=== PATIENT | female | born 1960 | race African-American/Black ===

== ENCOUNTER 2017-04-05 14:29 | Emergency (ER) | payer OTHER ==
[2017-04-05] MEDS ORDERED: DIPHENHYDRAMINE HCL 50 MG/ML VIAL IV ONE (14:49)
[2017-04-05] MEDS ORDERED: TERBUTALINE SULFATE INJ/PF 1 MG/1 ML SDV SUBCUT ONE (14:49)
[2017-04-05] MEDS ORDERED: FAMOTIDINE INJ/PF 20 MG/2 ML SDV IV ONE ×2 (14:49→14:51)
[2017-04-05] MEDS ORDERED: METHYLPREDNISOLONE INJ 125 MG/2 ML SDV ONE (14:51)
[2017-04-05] MEDS ORDERED: ALBUTEROL SULFATE 0.083% NEB 2.5 MG/3 ML AMPUL NEB ONE (14:51)
[2017-04-05] MEDS ORDERED: DIPHENHYDRAMINE HCL 50 MG/ML VIAL ONE (14:51)
--- NOTE | 2017-04-05 16:01 | RADIOLOGY REPORT (SQ) ---
EXAM DESCRIPTION: CHEST PA/LAT COMPLETED DATE/TIME: 04/05/2017 3:50 pm REASON FOR STUDY: cough COMPARISON: 09/10/2013 EXAM PARAMETERS: NUMBER OF VIEWS: two views TECHNIQUE: Digital Frontal and Lateral radiographic views of the chest acquired. RADIATION DOSE: NA LIMITATIONS: none FINDINGS: LUNGS AND PLEURA: No opacities, masses or pneumothorax. No pleural effusion. MEDIASTINUM AND HILAR STRUCTURES: No masses or contour abnormalities. HEART AND VASCULAR STRUCTURES: Heart size upper limits of normal. No evidence for failure. BONES: No acute findings. HARDWARE: None in the chest. OTHER: No other significant finding. IMPRESSION: NO ACUTE RADIOGRAPHIC FINDING IN THE CHEST. TECHNICAL DOCUMENTATION: JOB ID: [id number] [employer]- All Rights Reserved
--- NOTE | 2017-04-05 16:29 | ER Document Report ---
ED General - General Chief Complaint: Congestion Stated Complaint: CONGESTION Time Seen by Provider: 04/05/17 14:42 Information source: Patient TRAVEL OUTSIDE OF THE [place] IN LAST 30 DAYS: No - HPI Onset: Just prior to arrival Onset/Duration: Sudden Associated symptoms: None Similar symptoms previously: No - Related Data Allergies/Adverse Reactions: aspirin [Aspirin] Allergy (Verified 06/21/15 15:59) Past Medical History - General Information source: Patient - Social History Smoking Status: Never Smoker Chew tobacco use (# tins/day): No Frequency of alcohol use: None Drug Abuse: None Family History: Reviewed & Not Pertinent Patient has suicidal ideation: No Patient has homicidal ideation: No - Past Medical History Cardiac Medical History: Reports: Hx Hypertension Pulmonary Medical History: Reports: Hx Asthma Endocrine Medical History: Reports: Hx Diabetes Mellitus Type 2 Renal/ Medical History: Denies: Hx Peritoneal Dialysis GI Medical History: Reports: Hx Gastroesophageal Reflux Disease Past Surgical History: Reports: Hx Section - x 4, Hx Gynecologic Surgery - uterine fibroids, Hx Hysterectomy - Immunizations Hx Diphtheria, Pertussis, Tetanus Vaccination: Yes Review of Systems - Review of Systems Constitutional: No symptoms reported EENT: No symptoms reported, Throat pain, Throat swelling Cardiovascular: No symptoms reported Respiratory: No symptoms reported, Cough Gastrointestinal: No symptoms reported Genitourinary: No symptoms reported Female Genitourinary: No symptoms reported Musculoskeletal: No symptoms reported Skin: No symptoms reported Hematologic/Lymphatic: No symptoms reported Neurological/Psychological: No symptoms reported Physical Exam - Vital signs Vitals: Temp Pulse Resp BP Pulse Ox 98.4 F 86 3 L 143/75 H 95 04/05/17 14:34 04/05/17 14:34 04/05/17 14:34 04/05/17 14:34 04/05/17 14:34 Interpretation: Normal - General General appearance: Appears well, Alert - HEENT Head: Normocephalic, Atraumatic Eyes: Normal Pupils: PERRL - Respiratory Respiratory status: No respiratory distress Chest status: Nontender Breath sounds: Normal Chest palpation: Normal - Cardiovascular Rhythm: Regular Heart sounds: Normal auscultation Murmur: No - Abdominal Inspection: Normal Distension: No distension Bowel sounds: Normal Tenderness: Nontender Organomegaly: No organomegaly - Back Back: Normal, Nontender - Extremities General upper extremity: Normal inspection, Nontender, Normal color, Normal ROM , Normal temperature General lower extremity: Normal inspection, Nontender, Normal color, Normal ROM , Normal temperature, Normal weight bearing. No: Jean Marie's sign - Neurological Neuro grossly intact: Yes Cognition: Normal Orientation: AAOx4 [place] Coma Scale Eye Opening: Spontaneous [place] Coma Scale Verbal: Oriented [place] Coma Scale Motor: Obeys Commands [place] Coma Scale Total: 15 Speech: Normal Motor strength normal: LUE, RUE, LLE, RLE Sensory: Normal - Psychological Associated symptoms: Normal affect, Normal mood - Skin Skin Temperature: Warm Skin Moisture: Dry Skin Color: Normal Course - Re-evaluation Re-evalutation: 04/05/17 16:25 This is a 56-year-old female presents to the emergency room today stating that she had had a cough over the course of the last 4 days. When she arrived to the emergency room she did not tell us that she felt as though her throat was swelling. It was difficult to ascertain if that were true symptomology or a somatoform type stridor.. Nonetheless patient was provided with Solu-Medrol Pepcid Benadryl she was observed for a period of 2 hours she was feeling well and speaking in full sentences in fact she was doing out approximately 2 minutes after the administration of the medication. Monitored for again about approximately 2 hours with no difficulty with that an x-ray was obtained of her chest to her original complaint her pharynx was not red nor erythemic no exudate no edema no oral floor induration. - Vital Signs Vital signs: Temp Pulse Resp BP Pulse Ox 98.4 F 86 3 L 143/75 H 95 04/05/17 14:34 04/05/17 14:34 04/05/17 14:34 04/05/17 14:34 04/05/17 14:34 Discharge - Discharge Clinical Impression: Cough Additional Instructions: Bronchitis You have acute bronchitis. This disease is an infection or inflammation of the air passageways in your lungs. Symptoms usually include cough, low grade fever, shortness of breath, and wheezing. The cough usually persists for a couple of weeks. Most cases of bronchitis get better without antibiotics. We prescribe antibiotics when we believe bacteria are damaging your airways, or if there's high risk the bronchitis will worsen into pneumonia. Increase your fluid intake. A cool mist humidifier may make your lungs more comfortable. An expectorant (cough medicine that loosens phlegm) can help. If you smoke, STOP!!! Recovery from bronchitis can be somewhat slow, but you should see improvement within a day or two. Repeated episodes of bronchitis may result in lung damage -- for example, chronic bronchitis, recurrent pneumonias, or emphysema. Call the doctor if you develop increasing fever, shortness of breath, chest pain, bloody sputum, or otherwise worsen. If you have not improved at all after several days, contact the physician. Prescriptions: Amox Tr/Potassium Clavulanate [Augmentin 875-125 Tablet] 1 tab PO BID 10 Days Diphenhydramine HCl [Benadryl 25 mg Capsule] 25 mg PO Q6 PRN #25 capsule PRN Reason: Famotidine [Pepcid 20 mg Tablet] 20 mg PO DAILY #12 tablet Prednisone [Deltasone 20 mg Tablet] 3 tab PO DAILY 5 Days
[2017-04-05 16:51] VITALS: BP 141/75
== END 2017-04-05 17:00 | disposition home or self-care (01) ==
LOC: ER 14:29
DX: R05 Cough (principal); R22.1 Localized swelling, mass and lump, neck; E11.9 Type 2 diabetes mellitus without complications; I10 Essential (primary) hypertension; K21.9 Gastro-esophageal reflux disease without esophagitis; J45.909 Unspecified asthma, uncomplicated; Z88.6 Allergy status to analgesic agent
CPT/HCPCS: 94640; 99283; 96374; 96375; 71020; J1200; J2930; S0028

== ENCOUNTER 2017-11-06 19:39 | Emergency (ER) | payer OTHER ==
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
[2017-11-06] MEDS ORDERED: LIDOCAINE 5% (700 MG) TRANSDERMAL ADH..PATCH TP ONE (20:36)
[2017-11-06 21:26] VITALS: BP 138/71
== END 2017-11-06 20:48 | disposition home or self-care (01) ==
LOC: ER 19:39
DX: M54.6 Pain in thoracic spine (principal); M62.838 Other muscle spasm; R51 Headache; V87.7XXA Person injured in collision between other specified motor vehicles (traffic), initial encounter
CPT/HCPCS: 99283

== ENCOUNTER 2018-12-01 20:18 | Inpatient (IN) | payer OTHER ==
--- NOTE | 2018-12-01 21:32 | RADIOLOGY REPORT (SQ) ---
EXAM DESCRIPTION: CT HEAD WITHOUT IV CONTRAST COMPLETED DATE/TME: 12/01/2018 00:00 CLINICAL HISTORY: 58 years, Female, AMS COMPARISON: None. TECHNIQUE: 191 Images stored on PACS. All CT scanners at this facility use dose modulation, iterative reconstruction, and/or weight based dosing when appropriate to reduce radiation dose to as low as reasonably achievable (ALARA). [facility]: Dose Right [facility]: CareDose [facility]: Dose Right [facility]: Teradose 4D [facility]: [employer] LIMITATIONS: None. FINDINGS: The globes are intact. The paranasal sinuses and mastoid air cells are unremarkable. No displaced or depressed skull fracture. No intra or extra-axial hemorrhage. CT is limited for evaluation of acute infarct. No CT evidence for large or territorial acute infarct. Vague area of diminished attenuation in the left temporal region may reflect age-indeterminate infarct. There is also an area of diminished attenuation in the left parieto-occipital region consistent with age indeterminate infarct. Age-indeterminate lacunar infarct measuring 6.3 mm of the right basal ganglia. Hypodensities in the periventricular and subcortical white matter, consistent with sequelae of small vessel ischemic change. No discrete mass or midline shift. IMPRESSION: Age indeterminate lacunar infarct of the right basal ganglia. Vague areas of diminished attenuation in the left temporal and left parietal occipital region, consistent with areas of age-indeterminate infarct. No CT evidence for large or territorial acute infarct. No mass or midline shift. Minor small vessel ischemic change TECHNICAL DOCUMENTATION: Quality ID # [id number]: Final reports with documentation of one or more dose reduction techniques (e.g., Automated exposure control, adjustment of the mA and/or kV according to patient size, use of iterative reconstruction technique) copyright 2011 [employer]- All Rights Reserved
[2018-12-01 21:35] LABS: ABSOLUTE EOSINOPHILS # (AUTO) 0.1 10^3/uL (0.0-0.6); ABSOLUTE LYMPHOCYTES (AUTO) 1.9 10^3/uL (0.5-4.7); ABSOLUTE MONOCYTES (AUTO) 0.5 10^3/uL (0.1-1.4); ABSOLUTE NEUT (AUTO) 4.8 10^3/uL (1.7-8.2); BASOPHILS % (AUTO) 0.3 % (0-2); EOSINOPHILS % (AUTO) 1.4 % (0-6); HEMOGLOBIN 13.6 g/dL (12.0-15.5); LYMPHOCYTES % (AUTO) 26.2 % (13-45); MEAN CORPUSCULAR HEMOGLOBIN 27.3 pg (27.0-33.4); MEAN CORPUSCULAR HGB CONC 33.1 g/dL (32.0-36.0); MEAN CORPUSCULAR VOLUME 83 fl (80-97); PLATELET COUNT 297 10^3/uL (150-450); RED BLOOD COUNT 4.96 10^6/uL (3.72-5.28); RED CELL DISTRIBUTION WIDTH 13.1 % (11.5-14.0); SEGMENTED NEUTROPHILS % (AUTO) 65.1 % (42-78); TOTAL CELLS COUNTED % (AUTO) 100 %; WHITE BLOOD COUNT 7.3 10^3/uL (4.0-10.5)
--- NOTE | 2018-12-01 21:37 | ER Document Report ---
ED General - General Chief Complaint: Altered Mental Status Stated Complaint: HIGH BLOOD SUGAR/CONFUSION Time Seen by Provider: 12/01/18 21:16 Mode of Arrival: Ambulatory Information source: Patient, [facility] Records Notes: 58-year-old female with hypertension, asthma, type 2 diabetes, anemia presents via private vehicle with her with concern of confusion, elevated blood pressure, left-sided headache and unsteady gait that started 4 days prior to arrival. reports that the patient has seemed more confused over the last few days. She seems to have been off balance when walking. Today patient was sent home from work because she was very forgetful. Patient is unable to tell me what she does for work. She is alert, awake but cannot answer any questions regarding her health, date, why she is here. reports that this is a complete change from the patient's baseline. She does not smoke, drink or participate in illicit drugs per the . 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 They deny any prior similar symptoms. does report that the patient was treated with antibiotics for an upper respiratory infection 2 weeks ago. Patient currently complaining of a dull left-sided headache. TRAVEL OUTSIDE OF THE [place] IN LAST 30 DAYS: No - HPI Onset: Other Onset/Duration: Gradual, Persistent Quality of pain: Achy, Throbbing Severity: Mild Associated symptoms: Headache, Other - Confusion. denies: Chest pain, Nausea, Vomiting, Shortness of breath Exacerbated by: Denies Relieved by: Denies Similar symptoms previously: No Recently seen / treated by doctor: No - Related Data Allergies/Adverse Reactions: aspirin [Aspirin] Allergy (Verified 06/21/15 15:59) Past Medical History - General Information source: Patient, Relative, [facility] Records - Social History Smoking Status: Never Smoker Frequency of alcohol use: None Drug Abuse: None Lives with: Spouse/Significant other Family History: Reviewed & Not Pertinent Patient has suicidal ideation: No Patient has homicidal ideation: No - Past Medical History Cardiac Medical History: Reports: Hx Hypertension Pulmonary Medical History: Reports: Hx Asthma Endocrine Medical History: Reports: Hx Diabetes Mellitus Type 2 Renal/ Medical History: Denies: Hx Peritoneal Dialysis GI Medical History: Reports: Hx Gastroesophageal Reflux Disease Past Surgical History: Reports: Hx Section - x 4, Hx Gynecologic Surgery - uterine fibroids, Hx Hysterectomy - Immunizations Hx Diphtheria, Pertussis, Tetanus Vaccination: Yes Review of Systems - Review of Systems Notes: REVIEW OF SYSTEMS: CONSTITUTIONAL : Denies fever, chills, or sweats. Denies recent illness. Denies weight loss, recent hospitalizations. EENT: Denies visual changes, eye pain. Denies sore throat, oral lesions, difficulty swallowing. CARDIOVASCULAR: Denies chest pain. Denies palpitations. Denies lower extremity edema. RESPIRATORY: Denies cough. Denies shortness of breath, wheezing. GASTROINTESTINAL: Denies abdominal pain or distention. Denies nausea, vomiting, or diarrhea. Denies blood in vomitus, stools, or per rectum. Denies black, tarry stools. Denies constipation. GENITOURINARY: Denies difficulty urinating, painful urination, frequency, blood in urine, or vaginal discharge. MUSCULOSKELETAL: Denies back or neck pain or stiffness. Denies joint pain or swelling. SKIN: Denies rash, lesions or sores. HEMATOLOGIC : Denies easy bruising or bleeding. LYMPHATIC: Denies swollen glands. NEUROLOGICAL: + Confusion, denies loss of consciousness. Denies dizziness or lightheadedness. + Headache denies weakness or paralysis. + difficulty with ambulation, slurred speech. Denies sensory loss, numbness, or tingling. Denies seizures. PSYCHIATRIC: Denies anxiety or stress. Denies depression, suicidal ideation, or homicidal ideation. Denies visual or auditory hallucinations. Physical Exam - Vital signs Vitals: Temp Pulse Resp BP Pulse Ox 100.0 F 67 20 164/68 H 95 12/01/18 20:29 12/01/18 20:29 12/01/18 20:29 12/01/18 20:29 12/01/18 20:29 Interpretation: Hypertensive - Notes Notes: PHYSICAL EXAMINATION: GENERAL: Well-appearing, well-nourished and in no acute distress. HEAD: Atraumatic, normocephalic. EYES: Pupils equal round and reactive to light, extraocular movements intact, conjunctiva are normal. ENT: Nares patent, oropharynx clear without exudates. Moist mucous membranes. NECK: Normal range of motion, supple without lymphadenopathy LUNGS: Breath sounds clear to auscultation bilaterally and equal. No wheezes rales or rhonchi. HEART: Regular rate and rhythm without murmurs ABDOMEN: Soft, nontender, nondistended abdomen. No guarding, no rebound. No masses appreciated. Female : deferred Musculoskeletal: Normal range of motion, no pitting or edema. No cyanosis. NEUROLOGICAL: Cranial nerves grossly intact. Normal speech, Normal sensory, motor exams. Moderate aphasia. NIH-6 for bilateral lower extremity drift, a aphasia. PSYCH: Confused SKIN: Warm, Dry, normal turgor, no rashes or lesions noted. Course - Re-evaluation Re-evalutation: 12/01/18 22:15 CT of the head was obtained. Patient is allergic to aspirin. - Vital Signs Vital signs: Temp Pulse Resp BP Pulse Ox 98.7 F 68 20 141/69 H 94 12/02/18 02:05 12/02/18 02:05 12/02/18 02:05 12/02/18 02:05 12/02/18 02:05 - Laboratory Result Diagrams: 12/01/18 21:18 12/01/18 21:18 Laboratory results interpreted by me: 12/01/18 12/01/18 12/01/18 21:18 21:21 22:16 Sodium 134.9 L Potassium 5.3 H Chloride 95 L Carbon Dioxide 32 H BUN 28 H Creatinine 1.32 H Est GFR ( Amer) 50 L Est GFR (Non-Af Amer) 41 L Glucose 253 H POC Glucose 262 H Ammonia Ur Leukocyte Esterase TRACE H Urine Ascorbic Acid 40 H 12/01/18 22:38 Sodium Potassium Chloride Carbon Dioxide BUN Creatinine Est GFR ( Amer) Est GFR (Non-Af Amer) Glucose POC Glucose Ammonia < 8.7 L Ur Leukocyte Esterase Urine Ascorbic Acid - Diagnostic Test Radiology reviewed: Image reviewed, Reports reviewed - EKG Interpretation by Me EKG shows normal: Sinus rhythm Rate: Normal Rhythm: NSR Voltage: Consistant with LVH When compared to previous EKG there are: Previous EKG unavailable Critical Care Note - Critical Care Note Total time excluding time spent on procedures (mins): 40 - Minutes of critical care time spent in direct contact evaluating and reevaluating the patient, treating symptoms, reviewing labs and studies and speaking with family and consultants excluding any procedures Discharge - Discharge Clinical Impression: Expressive aphasia, Lacunar infarct, acute, Diabetes mellitus type 2 in obese CVA (cerebral vascular accident) Qualifiers: CVA mechanism: occlusion Precerebral and cerebral artery: unspecified precerebral artery Qualified Code(s): I63.20 - Cerebral infarction due to unspecified occlusion or stenosis of unspecified precerebral arteries HTN (hypertension) Qualifiers: Hypertension type: essential hypertension Qualified Code(s): I10 - Essential (primary) hypertension Condition: Fair Disposition: ADMITTED INPATIENT Admitting Provider: Hospitalist Unit Admitted: [facility]
[2018-12-01 21:42] LABS: INTERNATIONAL RATION (INR) 0.93
[2018-12-01 21:53] LABS: ALANINE AMINOTRANSFERASE 22 U/L (9-52); ALBUMIN 4.5 g/dL (3.5-5.0); ALKALINE PHOSPHATASE 104 U/L (38-126); ANION GAP 8 (5-19); ASPARTATE AMINO TRANSFERASE 20 U/L (14-36); BILIRUBIN,DIRECT 0.3 mg/dL (0.0-0.4); BILIRUBIN,TOTAL 0.4 mg/dL (0.2-1.3); BLOOD UREA NITROGEN 28 mg/dL (7-20); CALCIUM 10.1 mg/dL (8.4-10.2); CARBON DIOXIDE 32 mmol/L (22-30); CHLORIDE 95 mmol/L (98-107); GLUCOSE 253 mg/dL (75-110); POTASSIUM 5.3 mmol/L (3.6-5.0); SODIUM 134.9 mmol/L (137-145); TOTAL PROTEIN 7.7 g/dL (6.3-8.2)
--- NOTE | 2018-12-01 22:12 | RADIOLOGY REPORT (SQ) ---
EXAM DESCRIPTION: CT NECK head and ANGIOGRAPHY WITHOUT THEN WITH IV CONTRAST COMPLETED DATE/TME: 12/01/2018 21:30 CLINICAL HISTORY: 58 years, Female, ams COMPARISON: None. TECHNIQUE: 361 Images stored on PACS. All CT scanners at this facility use dose modulation, iterative reconstruction, and/or weight based dosing when appropriate to reduce radiation dose to as low as reasonably achievable (ALARA). Axial CTA images were obtained with coronal and sagittal MIPS reconstructions. [facility]: Dose Right [facility]: CareDose [facility]: Dose Right [facility]: Teradose 4D [facility]: [employer] LIMITATIONS: None. FINDINGS: CTA neck: Classic takeoff of the great vessels. The origins of the great vessels are widely patent. Visualized lung apices are unremarkable. The cervical portions of the vertebral arteries are patent and appear codominant. The bilateral common carotid arteries are widely patent. Incidental note is made of a heterogeneous appearance to the thyroid with nodularity in the left lobe. This could be further assessed with ultrasound. The cervical portions of the bilateral common carotid arteries are widely patent. No CTA evidence for stenosis. CTA head: The vertebral basilar system is unremarkable. Negative for basilar tip aneurysm. The petrous and remaining intracranial portions of the internal carotid arteries are widely patent. The pokagon of [place] is intact and unremarkable. No CTA evidence for aneurysm or arteriovenous malformation. No CTA evidence for measurable stenosis, vascular encasement, or displacement. IMPRESSION: No CTA evidence for measurable stenosis in the head or neck. Heterogeneity of the thyroid, consider further assessment with nonemergent ultrasound. TECHNICAL DOCUMENTATION: Quality ID # 436: Final reports with documentation of one or more dose reduction techniques (e.g., Automated exposure control, adjustment of the mA and/or kV according to patient size, use of iterative reconstruction technique) copyright 2010 [employer]- All Rights Reserved
--- NOTE | 2018-12-01 22:38 | RADIOLOGY REPORT (SQ) ---
EXAM DESCRIPTION: XR CHEST 1 VIEW COMPLETED DATE/TME: 12/01/2018 20:56 CLINICAL HISTORY: 58 years, Female, FEVER COMPARISON: 04/05/2017 chest NUMBER OF VIEWS: 1 TECHNIQUE: Portable chest LIMITATIONS: None. FINDINGS: Heart size is normal. Mild atheromatous change thoracic aorta. Osteopenia. Lungs are clear. No pneumothorax IMPRESSION: No acute cardiopulmonary process copyright 2010 [employer]- All Rights Reserved
[2018-12-01 22:39] LABS: APPEARANCE,URINE CLEAR; BILIRUBIN,URINE NEGATIVE (NEGATIVE); COLOR,URINE YELLOW; GLUCOSE, URINE NEGATIVE (NEGATIVE); KETONES,URINE NEGATIVE (NEGATIVE); LEUKOCYTE ESTERASE,URINE TRACE (NEGATIVE); NITRITE,URINE NEGATIVE (NEGATIVE); PROTEIN,URINE NEGATIVE (NEGATIVE); URINE SPECIFIC GRAVITY 1.026; UROBILINOGEN,URINE NEGATIVE mg/dL (<2.0)
[2018-12-01 22:56] LABS: VENOUS BLOOD BASE EXCESS 4.7 mmol/L; VENOUS BLOOD HCO3 31.5 mmol/L (20-32); VENOUS BLOOD PCO2 56.1 mmHg (35-63); VENOUS BLOOD PH 7.37 (7.30-7.42)
[2018-12-01] MEDS ORDERED: TRAMADOL HCL 50 MG TABLET PO PRN (23:27)
[2018-12-01] MEDS ORDERED: MAGNESIUM HYDROXIDE SUSP 30 ML UDCUP PO PRN (23:27)
[2018-12-01] MEDS ORDERED: DOCUSATE SODIUM 100 MG CAPSULE PO PRN (23:27)
[2018-12-01] MEDS ORDERED: ACETAMINOPHEN 650 MG SUPP.RECT PR PRN (23:27)
[2018-12-01] MEDS ORDERED: ACETAMINOPHEN 325 MG TABLET PO PRN (23:27)
[2018-12-01] MEDS ORDERED: ONDANSETRON HCL INJ/PF 4 MG/2 ML SDV IV PRN (23:27)
[2018-12-01] MEDS ORDERED: ONDANSETRON 4 MG TAB.RAPDIS PO PRN (23:27)
[2018-12-01] MEDS ORDERED: TEMAZEPAM 15 MG CAPSULE PO PRN (23:27)
[2018-12-02 00:54] LABS: FREE T3 2.84 pg/mL (2.77-5.27); FREE T4 (FREE THYROXINE) 1.2 ng/dL (0.78-2.19)
[2018-12-02 06:14] LABS: HEMATOCRIT 37.5 % (36.0-47.0); HEMOGLOBIN 12.6 g/dL (12.0-15.5); MEAN CORPUSCULAR HEMOGLOBIN 27.4 pg (27.0-33.4); MEAN CORPUSCULAR HGB CONC 33.7 g/dL (32.0-36.0); MEAN CORPUSCULAR VOLUME 82 fl (80-97); PLATELET COUNT 255 10^3/uL (150-450); RED CELL DISTRIBUTION WIDTH 13.1 % (11.5-14.0); WHITE BLOOD COUNT 6.5 10^3/uL (4.0-10.5)
[2018-12-02 06:28] LABS: ANION GAP 7 (5-19); BLOOD UREA NITROGEN 25 mg/dL (7-20); CALCIUM 9.7 mg/dL (8.4-10.2); CARBON DIOXIDE 30 mmol/L (22-30); CHLORIDE 98 mmol/L (98-107); CHOLESTEROL 245.65 mg/dL (0-200); GLUCOSE 284 mg/dL (75-110); POTASSIUM 5.3 mmol/L (3.6-5.0); SODIUM 135.4 mmol/L (137-145); TRIGLYCERIDES 191 mg/dL (<150)
[2018-12-02 06:38] LABS: DIRECT LDL 149 mg/dL (<100)
[2018-12-02 06:48] LABS: VLDL CHOLESTEROL 38.2 mg/dL (10-31)
--- NOTE | 2018-12-02 06:48 | PDOC H&P ---
History of Present Illness Admission Date/PCP: 12/01/18 22:40 Patient complains of: Acute change in mental status "confusion" History of Present Illness: JOSIE BIRD is a 58 year old female who presented to the emergency room with a 5-day history of headache with mental confusion. She has a significant expressive aphasia and her helps to fill in the communication gaps. 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 She continued to have a moderately intense global headache until the morning of admission. She was also noted to have mental confusion over the same timeframe, by her who felt that she was having a hard time remembering simple every day things that would never be confusing to her under normal circumstances. 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 She had difficulty remembering the names of objects and could not name things such as her high blood pressure medicine and also had some confusion about the number of days that she had a headache and what day her symptoms changed. She denies prior similar episodes and has not identified any aggravating or ameliorating factors for her headache or confusion. In the emergency room she was found to have changes consistent with an acute cerebrovascular accident on her CT scan of the head. With these findings patient was admitted for acute stroke care. Past Medical History Cardiac Medical History: Reports: Hypertension Pulmonary Medical History: Reports: Asthma Denies: Chronic Obstructive Pulmonary Disease (COPD), Respiratory Failure EENT Medical History: Reports: None Neurological Medical History: Denies: Hemorrhagic CVA, Ischemic CVA, Multiple Sclerosis, Seizures Endocrine Medical History: Reports: Diabetes Mellitus Type 2, Obesity Denies: Hyperthyroidism, Hypothyroidism Renal/ Medical History: Denies: Chronic Kidney Disease, Nephrolithiasis Malignancy Medical History: Reports: None GI Medical History: Reports: Gastroesophageal Reflux Disease Denies: Cirrhosis, Hepatitis Musculoskeltal Medical History: Denies: Arthritis, Gout Skin Medical History: Denies: Eczema, Psoriasis Psychiatric Medical History: Denies: Alcohol Dependency, Substance Abuse, Tobacco Dependency Traumatic Medical History: Reports: None Hematology: Reports: Anemia Denies: Bleeding Tendencies Infectious Medical History: Reports: None Past Surgical History Past Surgical History: Reports: Section - x 4, Hysterectomy Social History Information Source: Patient Lives with: Spouse/Significant other Smoking Status: Never Smoker Frequency of Alcohol Use: None Hx Recreational Drug Use: No Drugs: None Hx Prescription Drug Abuse: No - Advance Directive Resuscitation Status: Full Code Surrogate healthcare decision maker:: Spouse Family History Family History: Hypertension Parental Family History Reviewed: Yes Children Family History Reviewed: No Sibling(s) Family History Reviewed.: Yes Medication/Allergy Home Medications: Amlodipine/Valsartan/Hcthiazid [Exforge Hct 10-320-25 mg Tablet] 1 tab PO DAILY 10/31/14 Glipizide [Glipizide ER] 5 mg PO DAILY 10/31/14 Glipizide [Glipizide Xl] 10 mg PO DAILY #30 tab.er.24 10/31/14 Metformin HCl [Glucophage XR 750 mg Tablet] 750 mg PO DAILY 10/31/14 Oxycodone HCl/Acetaminophen [Percocet 5-325 mg Tablet] 0.5 - 1 tab PO Q6 #10 tablet 06/21/15 Albuterol Sulfate [Proair HFA Inhalation Aerosol 8.5 gm MDI] 2 puff IH Q4H PRN #1 mdi 04/05/17 Amox Tr/Potassium Clavulanate [Augmentin 875-125 Tablet] 1 tab PO BID 10 Days tablet 04/05/17 Diphenhydramine HCl [Benadryl 25 mg Capsule] 25 mg PO Q6 PRN #25 capsule 04/05/17 Famotidine [Pepcid 20 mg Tablet] 20 mg PO DAILY #12 tablet 04/05/17 Prednisone [Deltasone 20 mg Tablet] 3 tab PO DAILY 5 Days tablet 04/05/17 Allergies/Adverse Reactions: aspirin [Aspirin] Allergy (Verified 06/21/15 15:59) Review of Systems Review of Systems: Provided by the patient with some help from her spouse. Constitutional: PRESENT: as per HPI, headache(s). ABSENT: chills, fever(s) Eyes: ABSENT: visual disturbances, other - Ocular pain Ears: ABSENT: hearing changes, other - Ear pain Nose, Mouth, and Throat: ABSENT: mouth pain, sore throat Cardiovascular: ABSENT: chest pain, dyspnea on exertion, palpitations Respiratory: ABSENT: cough, dyspnea Gastrointestinal: ABSENT: abdominal pain, constipation, diarrhea, nausea, vomiting Genitourinary: ABSENT: dysuria, hematuria - [id number] Integumentary: ABSENT: pruritus, rash Neurological: PRESENT: abnormal speech - Difficulty saying the words she wishes to say, confusion - Cannot think of things she can normally remember, memory loss - Hard to remember the names of common objects. ABSENT: convulsions Psychiatric: ABSENT: anxiety, depression Endocrine: ABSENT: cold intolerance, heat intolerance Hematologic/Lymphatic: ABSENT: easy bleeding, easy bruising Physical Exam Vital Signs: Temp Pulse Resp BP Pulse Ox 100.0 F 69 20 136/73 H 95 12/01/18 20:29 12/01/18 21:41 12/01/18 21:41 12/01/18 21:41 12/01/18 21:41 General appearance: PRESENT: no acute distress, cooperative, obese Head exam: PRESENT: atraumatic, normocephalic Eye exam: PRESENT: conjunctiva pink, EOMI. ABSENT: scleral icterus Ear exam: PRESENT: normal external ear exam. ABSENT: bleeding, drainage Mouth exam: PRESENT: dry mucosa, neck supple Neck exam: PRESENT: full ROM. ABSENT: JVD, thyromegaly, tracheal deviation Respiratory exam: PRESENT: clear to auscultation amarjit, symmetrical, unlabored Cardiovascular exam: PRESENT: RRR. ABSENT: clicks, gallop, rubs Pulses: PRESENT: normal radial pulses, normal dorsalis pedis pul GI/Abdominal exam: PRESENT: normal bowel sounds, soft Rectal exam: PRESENT: deferred Extremities exam: ABSENT: joint swelling, pedal edema Musculoskeletal exam: ABSENT: full ROM, normal inspection Neurological exam: PRESENT: alert, oriented to person, oriented to place, oriented to time, oriented to situation, CN II-XII grossly intact, aphasic - Mild to moderate expressive aphasia, no evidence of receptive aphasia.. ABSENT: motor sensory deficit Psychiatric exam: PRESENT: appropriate affect, normal mood Skin exam: PRESENT: dry, intact, warm. ABSENT: jaundice, rash, urticaria Results Laboratory Results: 12/01/18 21:18 12/01/18 21:18 12/01/18 12/01/18 12/01/18 21:18 21:18 22:16 WBC 7.3 RBC 4.96 Hgb 13.6 Hct 41.0 MCV 83 MCH 27.3 MCHC 33.1 RDW 13.1 Plt Count 297 Seg Neutrophils % 65.1 Lymphocytes % 26.2 Monocytes % 7.0 Eosinophils % 1.4 Basophils % 0.3 Absolute Neutrophils 4.8 Absolute Lymphocytes 1.9 Absolute Monocytes 0.5 Absolute Eosinophils 0.1 Absolute Basophils 0.0 Sodium 134.9 L Potassium 5.3 H Chloride 95 L Carbon Dioxide 32 H Anion Gap 8 BUN 28 H Creatinine 1.32 H Est GFR ( Amer) 50 L Est GFR (Non-Af Amer) 41 L Glucose 253 H Calcium 10.1 Total Bilirubin 0.4 AST 20 ALT 22 Alkaline Phosphatase 104 Total Protein 7.7 Albumin 4.5 Urine Color YELLOW Urine Appearance CLEAR Urine pH 6.0 Ur Specific [place] 1.026 Urine Protein NEGATIVE Urine Glucose (UA) NEGATIVE Urine Ketones NEGATIVE Urine Blood NEGATIVE Urine Nitrite NEGATIVE Ur Leukocyte Esterase TRACE H Urine WBC (Auto) 1 Urine RBC (Auto) 0 Impressions: Head CT 12/01/18 00:00 IMPRESSION: Age indeterminate lacunar infarct of the right basal ganglia. Vague areas of diminished attenuation in the left temporal and left parietal occipital region, consistent with areas of age-indeterminate infarct. No CT evidence for large or territorial acute infarct. No mass or midline shift. Minor small vessel ischemic change TECHNICAL DOCUMENTATION: Quality ID # 436: Final reports with documentation of one or more dose reduction techniques (e.g., Automated exposure control, adjustment of the mA and/or kV according to patient size, use of iterative reconstruction technique) copyright 2010 [employer]- All Rights Reserved Chest X-Ray 12/01/18 20:56 IMPRESSION: No acute cardiopulmonary process copyright 2010 [employer]- All Rights Reserved Neck CTA 12/01/18 21:30 IMPRESSION: No CTA evidence for measurable stenosis in the head or neck. Heterogeneity of the thyroid, consider further assessment with nonemergent ultrasound. TECHNICAL DOCUMENTATION: Quality ID # [id number]: Final reports with documentation of one or more dose reduction techniques (e.g., Automated exposure control, adjustment of the mA and/or kV according to patient size, use of iterative reconstruction technique) copyright 2011 [employer]- All Rights Reserved Assessment & Plan - Diagnosis (1) CVA (cerebral vascular accident) Qualifiers: CVA mechanism: occlusion Precerebral and cerebral artery: unspecified precerebral artery Qualified Code(s): I63.20 - Cerebral infarction due to unspecified occlusion or stenosis of unspecified precerebral arteries Is this a current diagnosis for this admission?: Yes Plan: Patient will be admitted per the acute stroke protocol on the stroke unit. (2) HTN (hypertension) Qualifiers: Hypertension type: essential hypertension Qualified Code(s): I10 - Essential (primary) hypertension Is this a current diagnosis for this admission?: Yes Plan: Patient will be continued on her current home antihypertensive medications. Her vital signs were monitored closely throughout her hospital stay and though some permissive hypertension will be allowed her blood pressure will be maintained below 160/100. (3) Diabetes mellitus type 2 in obese Is this a current diagnosis for this admission?: Yes Plan: Patient will be continued on her current diabetic therapy and hemoglobin A1c will be obtained to evaluate the efficacy of her current regimen. (4) Obesity Qualifiers: Obesity classification: unspecified obesity classification Serious obesity comorbidity presence: unspecified whether serious comorbidity present Is this a current diagnosis for this admission?: Yes Plan: Dietitian consultation will be undertaken to aid the patient in making healthy choices for weight loss and exercise to better control her blood pressure and help to reduce her risk of future strokes. (5) Headache Qualifiers: Headache type: tension-type Headache chronicity pattern: acute headache Intractability: not intractable Qualified Code(s): G44.209 - Tension-type headache, unspecified, not intractable Is this a current diagnosis for this admission?: Yes Plan: Patient's headache will be treated with Nubain 10 mg IV every 3 hours as needed for pain. - Time Time Spent: 30 to 50 Minutes Critical Time spent with patient: Less than 15 minutes Medications reviewed and adjusted accordingly: Yes Anticipated discharge: Home, Home with Homehealth, Acute Rehab - Inpatient Certification Based on my medical assessment, after consideration of the patient's comorbidities, presenting symptoms, or acuity I expect that the services needed warrant INPATIENT care.: Yes I certify that my determination is in accordance with my understanding of Medicare's requirements for reasonable and necessary INPATIENT services [42 CFR 412.3e].: Yes Medical Necessity: Significant Comorbidiites Make Outpatient Treatment Too Risky, Need Close Monitoring Due to Risk of Patient Decompensation, Risk of Co mplication if Not Cared For in Hospital
[2018-12-02] MEDS: HEPARIN SOD (PORCINE) 5,000 UNIT/ML 1 ML SYRINGE SUBCUT SCH ×3 (06:59→21:58)
--- NOTE | 2018-12-02 07:24 | EKG REPORT ---
SEVERITY:- ABNORMAL ECG - SINUS RHYTHM PROBABLE LEFT VENTRICULAR HYPERTROPHY : Confirmed by: Delmy Loza MD 02-Dec-2018 07:24:26
[2018-12-02] MEDS ORDERED: GLUCAGON,HUMAN RECOMB 1 MG INJ IM PRN (10:00)
[2018-12-02] MEDS ORDERED: ASPIRIN 81 MG TABLET, ENT COATED PO SCH (10:00)
[2018-12-02] MEDS ORDERED: GLIPIZIDE 5 MG TABLET PO SCH (10:00)
[2018-12-02] MEDS ORDERED: DEXTROSE 40% GEL 15 GM TUBE PO PRN (10:00)
[2018-12-02] MEDS ORDERED: METFORMIN HCL 750 MG PO SCH (10:00)
[2018-12-02] MEDS ORDERED: DEXTROSE 40% GEL 15 GM TUBE X 2 PO PRN (10:00)
[2018-12-02] MEDS ORDERED: DEXTROSE 50%-WATER SYRINGE 25 GM/50 ML DOSE IV PRN (10:00)
[2018-12-02] MEDS ORDERED: DEXTROSE 50%-WATER SYRINGE 12.5 GM/25 ML DOSE IV PRN (10:00)
[2018-12-02] MEDS: HYDROCHLOROTHIAZIDE 25 MG TABLET PO SCH (10:14)
[2018-12-02] MEDS: AMLODIPINE BESYLATE 10 MG TABLET PO SCH (10:14)
[2018-12-02] MEDS: FAMOTIDINE 20 MG TABLET PO SCH ×2 (10:14→21:56)
[2018-12-02] MEDS: INSULIN REG, HUMAN 100 UNIT/ML 3 ML VIAL (PYX) SUBCUT PRN ×4 (10:15→21:55)
[2018-12-02] MEDS: VALSARTAN 160 MG TABLET PO SCH (10:15)
--- NOTE | 2018-12-02 10:41 | PDOC PROGRESS REPORT ---
Subjective Progress Note for:: 12/02/18 Subjective:: 12/02/[id number]-eesb-old female came in with headache and confusion and CT head age indeterminate lacunar infarct in the right basal ganglia. She has expressive dysphasia and also has a septal problems. No focal neurological deficits. Stroke core measures were implemented. Speech therapy was requested. Reason For Visit: ACUTE CEREBROVASCULAR ACCIDENT WITH EXPRESSIVE Physical Exam Vital Signs: Temp Pulse Resp BP Pulse Ox 98.1 F 62 12 122/62 93 12/02/18 08:03 12/02/18 08:03 12/02/18 08:03 12/02/18 08:03 12/02/18 08:03 Intake & Output 12/01/18 12/02/18 12/03/18 06:59 06:59 06:59 Weight 88.3 kg General appearance: PRESENT: no acute distress Head exam: PRESENT: atraumatic Eye exam: PRESENT: PERRLA Mouth exam: PRESENT: moist Neck exam: ABSENT: carotid bruit, JVD, lymphadenopathy, thyromegaly Respiratory exam: PRESENT: clear to auscultation amarjit. ABSENT: rales, rhonchi, wheezes Cardiovascular exam: PRESENT: RRR. ABSENT: diastolic murmur, rubs, systolic murmur GI/Abdominal exam: PRESENT: normal bowel sounds, soft. ABSENT: distended, guarding, mass, organolmegaly, rebound, tenderness Extremities exam: PRESENT: full ROM. ABSENT: calf tenderness, clubbing, pedal edema Neurological exam: PRESENT: alert, altered, other - Expressive dysphasia and receptive problems Psychiatric exam: PRESENT: anxious Results Laboratory Results: 12/02/18 06:02 12/02/18 06:02 12/01/18 12/01/18 12/01/18 21:18 21:18 22:16 WBC 7.3 RBC 4.96 Hgb 13.6 Hct 41.0 MCV 83 MCH 27.3 MCHC 33.1 RDW 13.1 Plt Count 297 Seg Neutrophils % 65.1 Lymphocytes % 26.2 Monocytes % 7.0 Eosinophils % 1.4 Basophils % 0.3 Absolute Neutrophils 4.8 Absolute Lymphocytes 1.9 Absolute Monocytes 0.5 Absolute Eosinophils 0.1 Absolute Basophils 0.0 VBG pH VBG pCO2 VBG HCO3 VBG Base Excess Sodium 134.9 L Potassium 5.3 H Chloride 95 L Carbon Dioxide 32 H Anion Gap 8 BUN 28 H Creatinine 1.32 H Est GFR ( Amer) 50 L Est GFR (Non-Af Amer) 41 L Glucose 253 H Lactic Acid Calcium 10.1 Total Bilirubin 0.4 AST 20 ALT 22 Alkaline Phosphatase 104 Ammonia Total Protein 7.7 Albumin 4.5 Triglycerides Cholesterol LDL Cholesterol Direct VLDL Cholesterol HDL Cholesterol TSH Free T4 Free T3 pg/mL Urine Color YELLOW Urine Appearance CLEAR Urine pH 6.0 Ur Specific [place] 1.026 Urine Protein NEGATIVE Urine Glucose (UA) NEGATIVE Urine Ketones NEGATIVE Urine Blood NEGATIVE Urine Nitrite NEGATIVE Ur Leukocyte Esterase TRACE H Urine WBC (Auto) 1 Urine RBC (Auto) 0 12/01/18 12/01/18 12/01/18 22:38 22:38 22:38 WBC RBC Hgb Hct MCV MCH MCHC RDW Plt Count Seg Neutrophils % Lymphocytes % Monocytes % Eosinophils % Basophils % Absolute Neutrophils Absolute Lymphocytes Absolute Monocytes Absolute Eosinophils Absolute Basophils VBG pH 7.37 VBG pCO2 56.1 VBG HCO3 31.5 VBG Base Excess 4.7 Sodium Potassium Chloride Carbon Dioxide Anion Gap BUN Creatinine Est GFR ( Amer) Est GFR (Non-Af Amer) Glucose Lactic Acid 1.5 Calcium Total Bilirubin AST ALT Alkaline Phosphatase Ammonia < 8.7 L Total Protein Albumin Triglycerides Cholesterol LDL Cholesterol Direct VLDL Cholesterol HDL Cholesterol TSH Free T4 Free T3 pg/mL Urine Color Urine Appearance Urine pH Ur Specific [place] Urine Protein Urine Glucose (UA) Urine Ketones Urine Blood Urine Nitrite Ur Leukocyte Esterase Urine WBC (Auto) Urine RBC (Auto) 12/01/18 12/02/18 12/02/18 22:38 06:02 06:02 WBC 6.5 RBC 4.60 Hgb 12.6 Hct 37.5 MCV 82 MCH 27.4 MCHC 33.7 RDW 13.1 Plt Count 255 Seg Neutrophils % Lymphocytes % Monocytes % Eosinophils % Basophils % Absolute Neutrophils Absolute Lymphocytes Absolute Monocytes Absolute Eosinophils Absolute Basophils VBG pH VBG pCO2 VBG HCO3 VBG Base Excess Sodium 135.4 L Potassium 5.3 H Chloride 98 Carbon Dioxide 30 Anion Gap 7 BUN 25 H Creatinine 1.23 Est GFR ( Amer) 54 L Est GFR (Non-Af Amer) 45 L Glucose 284 H Lactic Acid Calcium 9.7 Total Bilirubin AST ALT Alkaline Phosphatase Ammonia Total Protein Albumin Triglycerides 191 H Cholesterol 245.65 H LDL Cholesterol Direct 149 H VLDL Cholesterol 38.2 H HDL Cholesterol 43 TSH Free T4 1.20 Free T3 pg/mL 2.84 Urine Color Urine Appearance Urine pH Ur Specific [place] Urine Protein Urine Glucose (UA) Urine Ketones Urine Blood Urine Nitrite Ur Leukocyte Esterase Urine WBC (Auto) Urine RBC (Auto) 12/02/18 06:02 WBC RBC Hgb Hct MCV MCH MCHC RDW Plt Count Seg Neutrophils % Lymphocytes % Monocytes % Eosinophils % Basophils % Absolute Neutrophils Absolute Lymphocytes Absolute Monocytes Absolute Eosinophils Absolute Basophils VBG pH VBG pCO2 VBG HCO3 VBG Base Excess Sodium Potassium Chloride Carbon Dioxide Anion Gap BUN Creatinine Est GFR ( Amer) Est GFR (Non-Af Amer) Glucose Lactic Acid Calcium Total Bilirubin AST ALT Alkaline Phosphatase Ammonia Total Protein Albumin Triglycerides Cholesterol LDL Cholesterol Direct VLDL Cholesterol HDL Cholesterol TSH 0.68 Free T4 Free T3 pg/mL Urine Color Urine Appearance Urine pH Ur Specific [place] Urine Protein Urine Glucose (UA) Urine Ketones Urine Blood Urine Nitrite Ur Leukocyte Esterase Urine WBC (Auto) Urine RBC (Auto) Impressions: Head CT 12/01/18 00:00 IMPRESSION: Age indeterminate lacunar infarct of the right basal ganglia. Vague areas of diminished attenuation in the left temporal and left parietal occipital region, consistent with areas of age-indeterminate infarct. No CT evidence for large or territorial acute infarct. No mass or midline shift. Minor small vessel ischemic change TECHNICAL DOCUMENTATION: Quality ID # 436: Final reports with documentation of one or more dose reduction techniques (e.g., Automated exposure control, adjustment of the mA and/or kV according to patient size, use of iterative reconstruction technique) copyright 2010 [employer]- All Rights Reserved Chest X-Ray 12/01/18 20:56 IMPRESSION: No acute cardiopulmonary process copyright 2010 [employer]- All Rights Reserved Head CTA 12/01/18 21:30 IMPRESSION: No CTA evidence for measurable stenosis in the head or neck. Heterogeneity of the thyroid, consider further assessment with nonemergent ultrasound. TECHNICAL DOCUMENTATION: Quality ID # [id number]: Final reports with documentation of one or more dose reduction techniques (e.g., Automated exposure control, adjustment of the mA and/or kV according to patient size, use of iterative reconstruction technique) copyright 2010 [employer]- All Rights Reserved Neck CTA 12/01/18 21:30 IMPRESSION: No CTA evidence for measurable stenosis in the head or neck. Heterogeneity of the thyroid, consider further assessment with nonemergent ultrasound. TECHNICAL DOCUMENTATION: Quality ID # [id number]: Final reports with documentation of one or more dose reduction techniques (e.g., Automated exposure control, adjustment of the mA and/or kV according to patient size, use of iterative reconstruction technique) copyright 2011 [employer]- All Rights Reserved Assessment & Plan - Diagnosis (1) CVA (cerebral vascular accident) Qualifiers: CVA mechanism: occlusion Precerebral and cerebral artery: unspecified precerebral artery Qualified Code(s): I63.20 - Cerebral infarction due to unspecified occlusion or stenosis of unspecified precerebral arteries Is this a current diagnosis for this admission?: Yes Plan: 12/02/2018-CT scan of the head shows age indeterminant lacunar infarct in the right basal ganglia. Patient had a problem with expressive dysphagia and receptive problems. No focal neurological deficits. CTA of the head CTA of the neck are negative for hemodynamically significant stenosis. MRI of the head is pending. Patient is allergic to aspirin and it was discontinued. Other pertinent stroke core measures were implemented. PT OT, , speech consult was requested. manufacturing planner was consulted. Aspiration, fall, seizure precautions were implemented. (2) HTN (hypertension) Qualifiers: Hypertension type: essential hypertension Qualified Code(s): I10 - Essential (primary) hypertension Is this a current diagnosis for this admission?: Yes Plan: 12/02/2018-patient blood pressure today is 141/69. Patient is on amlodipine 10 mg, valsartan 320 mg, hydrochlorothiazide 25 mg daily. Plan is to resume her home medications. (3) Diabetes mellitus type 2 in obese Is this a current diagnosis for this admission?: Yes Plan: 12/02/2018-has type 2 diabetes mellitus. Plan is to check her hemoglobin A1c. She was placed on insulin sliding scale. Dietary consult was requested. Patient is on glipizide and metformin at home , plan is to resume glipizide ,plan to hold metformin during the hospital stay. (4) Headache Qualifiers: Headache type: tension-type Headache chronicity pattern: acute headache Intractability: not intractable Qualified Code(s): G44.209 - Tension-type headache, unspecified, not intractable Is this a current diagnosis for this admission?: Yes Plan: 12/02/2018-patient initially came with severe headaches. Headaches are subsiding right now. She does not want any narcotics at this time. Denies any visual problems. (5) Obesity Qualifiers: Obesity classification: unspecified obesity classification Serious obesity comorbidity presence: unspecified whether serious comorbidity present Is this a current diagnosis for this admission?: Yes Plan: 12/02/2018 BMI is more than 35. Diet exercise weight loss lifestyle modifications are discussed with the patient. Dietary consult was requested. (6) Hyperlipemia Is this a current diagnosis for this admission?: Yes Plan: 12/02/2018-lipid profile was done total cholesterol is 245 and LDL is 149. Patient was started on atorvastatin. - Time Time Spent with patient: 15-24 minutes Medications reviewed and adjusted accordingly: Yes Anticipated discharge: Home
--- NOTE | 2018-12-02 12:29 | RADIOLOGY REPORT (SQ) ---
EXAM DESCRIPTION: CAROTID DOPPLER COMPLETED DATE/TIME: 12/02/2018 11:32 am REASON FOR STUDY: Expressive aphasia of acute onset COMPARISON: None. TECHNIQUE: Grayscale ultrasound, Doppler velocity and spectra, and color Doppler images acquired of the extra-cranial carotid and vertebral arteries. Images stored on PACS. LIMITATIONS: None. FINDINGS: RIGHT CAROTID CCA Velocities: Within normal limits. ICA Velocities Peak systolic 0.83 m/s. End diastolic 0.43 m/s. Proximal ICA/CCA peak systolic ratio 1.14. Spectra normal. No significant plaque. LEFT CAROTID CCA Velocities: Within normal limits. ICA Velocities Peak systolic 0.6 m/s. End diastolic 0.15 m/s. Proximal ICA/CCA peak systolic ratio 0.85. Spectra normal. No significant plaque. VERTEBRAL ARTERIES: Antegrade flow. Normal waveforms. SUBCLAVIAN ARTERIES: No finding. OTHER: No other significant finding. IMPRESSION: NO HEMODYNAMICALLY SIGNIFICANT STENOSIS. COMMENT: Quality ID #[id number]: Velocity criteria are extrapolated from the diameter data as defined by t he Society of Radiologists in Ultrasound Consensus Conference. Radiology 2003: 229; 340-346. TECHNICAL DOCUMENTATION: JOB ID: [id number] [employer]- All Rights Reserved Reading location - IP/workstation name: [email or web address]
--- NOTE | 2018-12-02 12:37 | RADIOLOGY REPORT (SQ) ---
EXAM DESCRIPTION: MRI HEAD WITHOUT COMPLETED DATE/TIME: 12/02/2018 12:02 pm REASON FOR STUDY: Expressive aphasia of acute onset COMPARISON: None. TECHNIQUE: Multiplanar imaging includes non-contrasted T1, T2, FLAIR, and diffusion with ADC map seq uences. Images stored on PACS. LIMITATIONS: None. FINDINGS: ANATOMY: No anomalies. Normal vascular flow voids. Pituitary fossa normal. CSF SPACES: Normal in size and contour. No hemorrhage. CEREBRUM: Sulci and gyri normal in size and contour. Increased white matter signal on the left on FL AIR imaging. No evidence of hemorrhage, mass, or extraaxial fluid collection. POSTERIOR FOSSA: No signal alteration. No hemorrhage. No edema, masses or mass effect. Internal william tory canals, cerebello-pontine angles, mastoids normal. DIFFUSION IMAGING: There is a broad area of abnormal diffusion on the left in the distribution of the middle cerebral artery. ORBITS: No masses. Globes normal. PARANASAL SINUSES: No fluid levels. Mucosa normal. OTHER: No other significant finding. IMPRESSION: The acute left middle cerebral artery infarction. EVIDENCE OF ACUTE STROKE: Yes LEFT MCA COMMENT: Pertinent findings on the imaging study reported as a CRITICAL RESULT to Dr. Gallo At12:3 1 on 12/02/2018. Category of Critical Result: Left middle cerebral artery infarction. TECHNICAL DOCUMENTATION: JOB ID: [id number]- All Rights Reserved Reading location - IP/workstation name: [email or web address]
--- NOTE | 2018-12-02 12:41 | RADIOLOGY REPORT (SQ) ---
EXAM DESCRIPTION: U/S THYROID/SFT TISS HD NECK COMPLETED DATE/TIME: 12/02/2018 12:20 pm REASON FOR STUDY: thyromegaly COMPARISON: None. TECHNIQUE: Dynamic and static cox-scale images acquired of the thyroid gland. Selected additional c olor/power Doppler images recorded. All images stored to PACS. LIMITATIONS: None. FINDINGS: RIGHT LOBE: Normal size, 4.4 x 1.7 x 1.4 cm. Homogeneous echotexture. No cystic or solid masses. LEFT LOBE: Normal size, 4.1 x 2 x 1.5 cm. Homogeneous echotexture. There is a 5 mm cystic lesion. There is an isoechoic heterogeneous nodule that measures 16 x 13 x 12 mm. ISTHMUS: Normal size, 6 mm. Homogeneous echotexture. There is a 9 mm heterogeneous nodule. OTHER: No other significant finding. IMPRESSION: The gland is normal in size, but there are some nodules as described. Consider biopsy o f the larger left lobe nodule. TECHNICAL DOCUMENTATION: JOB ID: [id number] [employer]- All Rights Reserved Reading location - IP/workstation name: [email or web address]
[2018-12-02] MEDS ORDERED: GLIPIZIDE XL 5 MG TAB.ER.24 PO SCH (18:00)
[2018-12-02] MEDS: ATORVASTATIN CALCIUM 10 MG TABLET PO SCH (21:56)
[2018-12-03 01:47] LABS: A TYPE INFLUENZA AG NEGATIVE (NEGATIVE); B INFLUENZA AG NEGATIVE (NEGATIVE)
[2018-12-03 05:16] LABS: HEMATOCRIT 38.9 % (36.0-47.0); HEMOGLOBIN 13.3 g/dL (12.0-15.5); MEAN CORPUSCULAR HEMOGLOBIN 27.5 pg (27.0-33.4); MEAN CORPUSCULAR VOLUME 81 fl (80-97); PLATELET COUNT 269 10^3/uL (150-450); RED BLOOD COUNT 4.82 10^6/uL (3.72-5.28); RED CELL DISTRIBUTION WIDTH 12.9 % (11.5-14.0); WHITE BLOOD COUNT 5.5 10^3/uL (4.0-10.5)
[2018-12-03 05:37] LABS: ALANINE AMINOTRANSFERASE 28 U/L (9-52); ALBUMIN 4.1 g/dL (3.5-5.0); ALKALINE PHOSPHATASE 86 U/L (38-126); ANION GAP 8 (5-19); ASPARTATE AMINO TRANSFERASE 23 U/L (14-36); BILIRUBIN,DIRECT 0.2 mg/dL (0.0-0.4); BILIRUBIN,TOTAL 0.5 mg/dL (0.2-1.3); BLOOD UREA NITROGEN 26 mg/dL (7-20); CARBON DIOXIDE 29 mmol/L (22-30); CHLORIDE 100 mmol/L (98-107); CHOLESTEROL 260.06 mg/dL (0-200); GLUCOSE 206 mg/dL (75-110); POTASSIUM 5.2 mmol/L (3.6-5.0); SODIUM 136.5 mmol/L (137-145); TRIGLYCERIDES 219 mg/dL (<150)
[2018-12-03 05:48] LABS: DIRECT LDL 153 mg/dL (<100)
[2018-12-03] MEDS: HEPARIN SOD (PORCINE) 5,000 UNIT/ML 1 ML SYRINGE SUBCUT SCH ×3 (05:58→23:29)
[2018-12-03 06:02] LABS: VLDL CHOLESTEROL 43.8 mg/dL (10-31)
[2018-12-03] MEDS: INSULIN REG, HUMAN 100 UNIT/ML 3 ML VIAL (PYX) SUBCUT PRN ×3 (06:46→18:18)
--- NOTE | 2018-12-03 09:40 | PDOC PROGRESS REPORT ---
Subjective Progress Note for:: 12/03/18 Subjective:: 12/02/[id number]-old female came in with headache and confusion and CT head age indeterminate lacunar infarct in the right basal ganglia. She has expressive dysphasia and also has a septal problems. No focal neurological deficits. Stroke core measures were implemented. Speech therapy was requested. 12/03/1999 [id number] female came to the emergency room with severe headaches and confusion CT head shows age indeterminate lacunar infarct in the right basal ganglia MRI of the brain was done without contrast and it shows stroke involving the right MCA territory. Patient still anxious and little bit agitated expressing desire to go home. She able to walk without any help. But she still have the expressive dysphasia and difficulty in memory and receptive problems. Physical therapy is working with the patient in my opinion patient may need to go to acute rehab for continuous recovery. Reason For Visit: ACUTE CEREBROVASCULAR ACCIDENT WITH EXPRESSIVE Physical Exam Vital Signs: Temp Pulse Resp BP Pulse Ox 98.3 F 60 16 144/71 H 95 12/03/18 07:19 12/03/18 07:19 12/03/18 07:19 12/03/18 07:19 12/03/18 07:19 Intake & Output 12/02/18 12/03/18 12/04/18 06:59 06:59 06:59 Intake Total 473 Balance 473 Weight 88.3 kg 84.4 kg General appearance: PRESENT: other - Comfortably in the chair but looks anxious. Expressing desire to go home. Head exam: PRESENT: atraumatic Eye exam: PRESENT: PERRLA Neck exam: ABSENT: carotid bruit, JVD, lymphadenopathy, thyromegaly Respiratory exam: PRESENT: clear to auscultation amarjit. ABSENT: rales, rhonchi, wheezes Cardiovascular exam: PRESENT: RRR. ABSENT: diastolic murmur, rubs, systolic murmur GI/Abdominal exam: PRESENT: normal bowel sounds, soft. ABSENT: distended, guarding, mass, organolmegaly, rebound, tenderness Neurological exam: PRESENT: alert, awake, CN II-XII grossly intact, other - Patient has a problems of expressing thoughts and feelings, she is also have Aricept 2 issues and memory problems. She able to tell me is November but she could not tell the ER date. Psychiatric exam: PRESENT: anxious Results Laboratory Results: 12/03/18 04:24 12/03/18 04:24 12/03/18 12/03/18 04:24 04:24 WBC 5.5 RBC 4.82 Hgb 13.3 Hct 38.9 MCV 81 MCH 27.5 MCHC 34.0 RDW 12.9 Plt Count 269 Sodium 136.5 L Potassium 5.2 H Chloride 100 Carbon Dioxide 29 Anion Gap 8 BUN 26 H Creatinine 1.37 H Est GFR ( Amer) 48 L Est GFR (Non-Af Amer) 39 L Glucose 206 H Calcium 10.0 Magnesium 2.2 Total Bilirubin 0.5 AST 23 ALT 28 Alkaline Phosphatase 86 Total Protein 7.0 Albumin 4.1 Triglycerides 219 H Cholesterol 260.06 H LDL Cholesterol Direct 153 H VLDL Cholesterol 43.8 H HDL Cholesterol 46 Impressions: Head CT 12/01/18 00:00 IMPRESSION: Age indeterminate lacunar infarct of the right basal ganglia. Vague areas of diminished attenuation in the left temporal and left parietal occipital region, consistent with areas of age-indeterminate infarct. No CT evidence for large or territorial acute infarct. No mass or midline shift. Minor small vessel ischemic change TECHNICAL DOCUMENTATION: Quality ID # 436: Final reports with documentation of one or more dose reduction techniques (e.g., Automated exposure control, adjustment of the mA and/or kV according to patient size, use of iterative reconstruction technique) copyright 2010 [employer]- All Rights Reserved Chest X-Ray 12/01/18 20:56 IMPRESSION: No acute cardiopulmonary process copyright 2010 [employer]- All Rights Reserved Head CTA 12/01/18 21:30 IMPRESSION: No CTA evidence for measurable stenosis in the head or neck. Heterogeneity of the thyroid, consider further assessment with nonemergent ultrasound. TECHNICAL DOCUMENTATION: Quality ID # 436: Final reports with documentation of one or more dose reduction techniques (e.g., Automated exposure control, adjustment of the mA and/or kV according to patient size, use of iterative reconstruction technique) copyright 2010 [employer]- All Rights Reserved Neck CTA 12/01/18 21:30 IMPRESSION: No CTA evidence for measurable stenosis in the head or neck. Heterogeneity of the thyroid, consider further assessment with nonemergent ultrasound. TECHNICAL DOCUMENTATION: Quality ID # 436: Final reports with documentation of one or more dose reduction techniques (e.g., Automated exposure control, adjustment of the mA and/or kV according to patient size, use of iterative reconstruction technique) copyright 2010 [employer]- All Rights Reserved Carotid Doppler Study 12/02/18 00:00 IMPRESSION: NO HEMODYNAMICALLY SIGNIFICANT STENOSIS. Head MRI 12/02/18 00:00 IMPRESSION: The acute left middle cerebral artery infarction. EVIDENCE OF ACUTE STROKE: Yes LEFT MCA Thyroid Ultrasound 12/02/18 00:00 IMPRESSION: The gland is normal in size, but there are some nodules as described. Consider biopsy of the larger left lobe nodule. Assessment & Plan - Diagnosis (1) CVA (cerebral vascular accident) Qualifiers: CVA mechanism: occlusion Precerebral and cerebral artery: unspecified precerebral artery Qualified Code(s): I63.20 - Cerebral infarction due to unspecified occlusion or stenosis of unspecified precerebral arteries Is this a current diagnosis for this admission?: Yes Plan: 12/02/2018-CT scan of the head shows age indeterminant lacunar infarct in the right basal ganglia. Patient had a problem with expressive dysphagia and receptive problems. No focal neurological deficits. CTA of the head CTA of the neck are negative for hemodynamically significant stenosis. MRI of the head is pending. Patient is allergic to aspirin and it was discontinued. Other pertinent stroke core measures were implemented. PT OT, , speech consult was requested. manufacturing planner was consulted. Aspiration, fall, seizure precautions were implemented. 12/03/2018 patient was admitted with headaches and confusion at the time of admission high blood pressures also. MRI of the brain was done which shows right middle cerebral artery infarct. Patient getting physical therapy. Acute stroke protocol was implemented. Patient is allergic to aspirin and aspirin was on hold. (2) HTN (hypertension) Qualifiers: Hypertension type: essential hypertension Qualified Code(s): I10 - Essential (primary) hypertension Is this a current diagnosis for this admission?: Yes Plan: 12/02/2018-patient blood pressure today is 141/69. Patient is on amlodipine 10 mg, valsartan 320 mg, hydrochlorothiazide 25 mg daily. Plan is to resume her home medications. 12/03/2018-blood pressure today is 144/71. Patient is presently on amlodipine 10 mg daily, valsartan 320 mg p.o. daily, hydrochlorothiazide 25 mg p.o. daily blood pressure is relatively controlled. Diet exercise compliant with medications are discussed with the patient and family members. (3) Diabetes mellitus type 2 in obese Is this a current diagnosis for this admission?: Yes Plan: 12/02/2018-has type 2 diabetes mellitus. Plan is to check her hemoglobin A1c. She was placed on insulin sliding scale. Dietary consult was requested. Patient is on glipizide and metformin at home , plan is to resume glipizide ,plan to hold metformin during the hospital stay. 12/03/2018 patient has history of diabetes mellitus hemoglobin A1c is 11.5. Patient is presently on glipizide 10 mg p.o. daily and insulin sliding scale. I started her on Lantus 10 units twice a day, her blood sugar this morning is 212. (4) Headache Qualifiers: Headache type: tension-type Headache chronicity pattern: acute headache Intractability: not intractable Qualified Code(s): G44.209 - Tension-type headache, unspecified, not intractable Is this a current diagnosis for this admission?: Yes Plan: 12/02/2018-patient initially came with severe headaches. Headaches are subsiding right now. She does not want any narcotics at this time. Denies any visual problems. 12/03/2018 at the time of admission patient complains of severe headaches in association with high blood pressures. No complaints of headaches anymore. Headache probably most likely secondary to the stroke. (5) Obesity Qualifiers: Obesity classification: unspecified obesity classification Serious obesity comorbidity presence: unspecified whether serious comorbidity present Is this a current diagnosis for this admission?: Yes Plan: 12/02/2018 BMI is more than 35. Diet exercise weight loss lifestyle modifications are discussed with the patient. Dietary consult was requested. 12/03/2018-patient's BMI is more than 35. Diet exercise weight loss and lifestyle modifications are discussed with the patient. (6) Hyperlipemia Is this a current diagnosis for this admission?: Yes Plan: 12/02/2018-lipid profile was done total cholesterol is 245 and LDL is 149. Patient was started on atorvastatin. 12/03/2018 total cholesterol is 245 LDL is 149 patient was on atorvastatin. Diet brittany advice was provided dietary consult was done. (7) Thyroid nodule Is this a current diagnosis for this admission?: Yes Plan: 12/03/2018 thyroid ultrasound was done per thyromegaly. Found to have thyroid nodule the radiologist recommendation is possible need for biopsy is going to arrange for the outpatient ENT follow-up. On palpation enlarged thyroid. - Time Time Spent with patient: 15-24 minutes Smoking Cessation Education: 3 to 10 minutes Medications reviewed and adjusted accordingly: Yes Anticipated discharge: Acute Rehab
[2018-12-03] MEDS ORDERED: HYDROCHLOROTHIAZIDE 25 MG TABLET PO SCH (10:00)
[2018-12-03] MEDS ORDERED: HCTHIAZID PO SCH (10:00)
[2018-12-03] MEDS ORDERED: AMLODIPINE BESYLATE 10 MG TABLET PO SCH (10:00)
[2018-12-03] MEDS ORDERED: AMLODIPINE PO SCH (10:00)
[2018-12-03] MEDS ORDERED: VALSARTAN PO SCH (10:00)
[2018-12-03] MEDS ORDERED: VALSARTAN 160 MG TABLET PO SCH (10:00)
[2018-12-03] MEDS ORDERED: [UNRECOGNIZED DRUG - OTHER] PO SCH (10:00)
[2018-12-03] MEDS: AMLODIPINE BESYLATE 10 MG TABLET PO SCH (10:49)
[2018-12-03] MEDS: FAMOTIDINE 20 MG TABLET PO SCH ×2 (10:49→23:29)
[2018-12-03] MEDS: VALSARTAN 160 MG TABLET PO SCH (10:49)
[2018-12-03] MEDS: HYDROCHLOROTHIAZIDE 25 MG TABLET PO SCH (10:49)
[2018-12-03] MEDS: GLIPIZIDE XL 5 MG TAB.ER.24 PO SCH (10:50)
[2018-12-03] MEDS ORDERED: INSULIN GLARGINE,HUM.REC.ANLOG 1,000 UNIT/10 ML UNIT SUBCUT SCH (11:00)
--- NOTE | 2018-12-03 23:11 | XCELERA REPORT ---
[address] [address] Transthoracic Echocardiogram Report Name: JOSIE BIRD Age: 58 yrs Gender: Female : 1960 Patient Status: Inpatient Patient Location: [address] [place], [place] [address] Study Date: 12/02/2018 09:04 AM Height: 64 in Weight: 190 lb BSA: 1.9 m2 Procedure: A two-dimensional transthoracic echocardiogram with color flow and Doppler was performed. The study was technically difficult with many images being suboptimal in quality. Reason For Study: Expressive aphasia of acute onset History: CVA. Ordering Physician: VERONA TOM Performed By: Andres Tan Interpretation Summary There is no obvious cardiac source of embolus noted on this transthoracic echocardiogram. Follow-up with a FRANCO is suggested if cardiac source is still suspected. The study was technically difficult with many images being suboptimal in quality. The left ventricle is normal in size. There is mild concentric left ventricular hypertrophy. LV EF is > than 65% Left ventricular systolic function is normal. Doppler measurements suggest impaired left ventricular relaxation, which is associated with grade I/IV or mild diastolic dysfunction No defenite regional wall motion abnormality. There is no thrombus. There is no ventricular septal defect visualized. The right ventricle is grossly normal size. The right ventricle is not well visualized secondary to technical limitations The right atrium is normal in size The left atrial size is normal. The interatrial septum is intact with no evidence for an atrial septal defect. There is no evidence of mitral valve prolapse. There is no vegetation seen on the mitral valve. There is no mitral valve stenosis. There is mild mitral annular calcification. There is a trace amount of mitral regurgitation There is no aortic valve stenosis There is no LVOT obstruction. There is aortic sclerosis without aortic stenosis. No aortic regurgitation is present. There is no tricuspid stenosis. There is a trace amount of tricuspid regurgitation Unable to calculate RVSP due lack of TR jet. There is no pulmonic valvular stenosis. There is no pulmonic valvular regurgitation. There is no pericardial effusion. There is no obvious cardiac source of embolus noted on this transthoracic echocardiogram. Follow-up with a FRANCO is suggested if cardiac source is still suspected MMode/2D Measurements & Calculations RVDd: 2.4 cm LVIDd: 4.7 cm FS: 40.2 % Ao root diam: 2.7 cm IVSd: 1.2 cm LVIDs: 2.8 cm EDV(Teich): 104.4 ml Ao root area: 5.9 cm2 LVPWd: 1.2 cm ESV(Teich): 30.4 ml LA dimension: 3.1 cm EF(Teich): 70.9 % Doppler Measurements & Calculations MV E max chantel: MV P1/2t max chantel: Ao V2 max: LV V1 max P.0 cm/sec 57.5 cm/sec 168.5 cm/sec 4.4 mmHg MV A max chantel: MV P1/2t: 114.7 msec Ao max PG: LV V1 max: 87.5 cm/sec MVA(P1/2t): 1.9 cm2 11.4 mmHg 104.9 cm/sec MV E/A: 0.62 MV dec slope: 146.9 cm/sec2 MV dec time: 0.34 sec PA V2 max: MV P1/2t-pr_phl: 104.1 cm/sec 114.7 msec PA max P.3 mmHg Left Ventricle The left ventricle is normal in size. There is mild concentric left ventricular hypertrophy. LV EF is > than 65%. Left ventricular systolic function is normal. Doppler measurements suggest impaired left ventricular relaxation, which is associated with grade I/IV or mild diastolic dysfunction. No defenite regional wall motion abnormality. There is no thrombus. There is no ventricular septal defect visualized. Right Ventricle The right ventricle is grossly normal size. The right ventricle is not well visualized secondary to technical limitations. Atria The right atrium is normal in size. The left atrial size is normal. The interatrial septum is intact with no evidence for an atrial septal defect. Mitral Valve There is mild mitral annular calcification. There is no evidence of mitral valve prolapse. There is no vegetation seen on the mitral valve. There is no mitral valve stenosis. There is a trace amount of mitral regurgitation. Aortic Valve There is no aortic valvular vegetation. There is no aortic valve stenosis. There is no LVOT obstruction. There is aortic sclerosis without aortic stenosis. No aortic regurgitation is present. Tricuspid Valve There is no tricuspid stenosis. There is a trace amount of tricuspid regurgitation. Unable to calculate RVSP due lack of TR jet. Pulmonic Valve There is no pulmonic valvular stenosis. There is no pulmonic valvular regurgitation. Great Vessels The aortic root is normal size. Effusions There is no pericardial effusion. : VERONA TOM > Delmy Loza
[2018-12-03] MEDS: INSULIN GLARGINE,HUM.REC.ANLOG 1,000 UNIT/10 ML UNIT SUBCUT SCH (23:27)
[2018-12-03] MEDS: ATORVASTATIN CALCIUM 10 MG TABLET PO SCH (23:29)
[2018-12-04 05:20] LABS: HEMATOCRIT 38.5 % (36.0-47.0); HEMOGLOBIN 12.9 g/dL (12.0-15.5); MEAN CORPUSCULAR HEMOGLOBIN 27.4 pg (27.0-33.4); MEAN CORPUSCULAR HGB CONC 33.6 g/dL (32.0-36.0); MEAN CORPUSCULAR VOLUME 82 fl (80-97); PLATELET COUNT 258 10^3/uL (150-450); RED BLOOD COUNT 4.71 10^6/uL (3.72-5.28); RED CELL DISTRIBUTION WIDTH 13.1 % (11.5-14.0); WHITE BLOOD COUNT 6.4 10^3/uL (4.0-10.5)
[2018-12-04 05:40] LABS: ANION GAP 8 (5-19); BLOOD UREA NITROGEN 31 mg/dL (7-20); CALCIUM 9.6 mg/dL (8.4-10.2); CARBON DIOXIDE 27 mmol/L (22-30); CHLORIDE 99 mmol/L (98-107); GLUCOSE 181 mg/dL (75-110); POTASSIUM 5.2 mmol/L (3.6-5.0); SODIUM 134.3 mmol/L (137-145)
[2018-12-04] MEDS: HEPARIN SOD (PORCINE) 5,000 UNIT/ML 1 ML SYRINGE SUBCUT SCH ×3 (06:35→22:06)
[2018-12-04] MEDS: INSULIN REG, HUMAN 100 UNIT/ML 3 ML VIAL (PYX) SUBCUT PRN ×3 (08:52→22:06)
[2018-12-04] MEDS ORDERED: AMLODIPINE BESYLATE 5 MG TABLET PO SCH (10:00)
--- NOTE | 2018-12-04 10:01 | PDOC PROGRESS REPORT ---
Subjective Progress Note for:: 12/04/18 Subjective:: 12/02/[id number]-ncih-old female came in with headache and confusion and CT head age indeterminate lacunar infarct in the right basal ganglia. She has expressive dysphasia and also has a septal problems. No focal neurological deficits. Stroke core measures were implemented. Speech therapy was requested. 12/03/2018 58-year-old female came to the emergency room with severe headaches and confusion CT head shows age indeterminate lacunar infarct in the right basal ganglia MRI of the brain was done without contrast and it shows stroke involving the right MCA territory. Patient still anxious and little bit agitated expressing desire to go home. She able to walk without any help. But she still have the expressive dysphasia and difficulty in memory and receptive problems. Physical therapy is working with the patient in my opinion patient may need to go to acute rehab for continuous recovery. 12/04/[id number]-jnkb-old female admitted for acute CVA. MRI of the brain shows right mid cerebral artery infarct. Patient does not have any physical impairment. 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 Physical therapy is working with the patient. Speech therapist is also involved the care. Reason For Visit: ACUTE CEREBROVASCULAR ACCIDENT WITH EXPRESSIVE Physical Exam Vital Signs: Temp Pulse Resp BP Pulse Ox 98.2 F 59 L 16 114/64 97 12/04/18 07:54 12/04/18 07:54 12/04/18 04:00 12/04/18 07:54 12/04/18 07:54 Intake & Output 12/03/18 12/04/18 12/05/18 06:59 06:59 06:59 Intake Total 473 1368 Balance 473 1368 Weight 84.4 kg 86.3 kg General appearance: PRESENT: no acute distress Eye exam: PRESENT: PERRLA Mouth exam: PRESENT: dry mucosa Neck exam: ABSENT: carotid bruit, JVD, lymphadenopathy, thyromegaly Respiratory exam: PRESENT: clear to auscultation amarjit. ABSENT: rales, rhonchi, wheezes Cardiovascular exam: PRESENT: RRR. ABSENT: diastolic murmur, rubs, systolic murmur GI/Abdominal exam: PRESENT: normal bowel sounds, soft. ABSENT: distended, guarding, mass, organolmegaly, rebound, tenderness Extremities exam: PRESENT: full ROM. ABSENT: calf tenderness, clubbing, pedal edema Neurological exam: PRESENT: alert, awake, oriented to person, oriented to place, oriented to time, oriented to situation, CN II-XII grossly intact. ABSENT: motor sensory deficit Results Laboratory Results: 12/04/18 04:20 12/04/18 04:20 12/04/18 12/04/18 04:20 04:20 WBC 6.4 RBC 4.71 Hgb 12.9 Hct 38.5 MCV 82 MCH 27.4 MCHC 33.6 RDW 13.1 Plt Count 258 Sodium 134.3 L Potassium 5.2 H Chloride 99 Carbon Dioxide 27 Anion Gap 8 BUN 31 H Creatinine 1.54 H Est GFR ( Amer) 42 L Est GFR (Non-Af Amer) 34 L Glucose 181 H Calcium 9.6 12/01/18 22:16 Clean Catch Midstream Urine Culture - Final Mixed Urogenital Lynn Impressions: Head CT 12/01/18 00:00 IMPRESSION: Age indeterminate lacunar infarct of the right basal ganglia. Vague areas of diminished attenuation in the left temporal and left parietal occipital region, consistent with areas of age-indeterminate infarct. No CT evidence for large or territorial acute infarct. No mass or midline shift. Minor small vessel ischemic change TECHNICAL DOCUMENTATION: Quality ID # 436: Final reports with documentation of one or more dose reduction techniques (e.g., Automated exposure control, adjustment of the mA and/or kV according to patient size, use of iterative reconstruction technique) copyright 2010 [employer]- All Rights Reserved Chest X-Ray 12/01/18 20:56 IMPRESSION: No acute cardiopulmonary process copyright 2010 [employer]- All Rights Reserved Head CTA 12/01/18 21:30 IMPRESSION: No CTA evidence for measurable stenosis in the head or neck. Heterogeneity of the thyroid, consider further assessment with nonemergent ultrasound. TECHNICAL DOCUMENTATION: Quality ID # 436: Final reports with documentation of one or more dose reduction techniques (e.g., Automated exposure control, adjustment of the mA and/or kV according to patient size, use of iterative reconstruction technique) copyright 2010 [employer]- All Rights Reserved Neck CTA 12/01/18 21:30 IMPRESSION: No CTA evidence for measurable stenosis in the head or neck. Heterogeneity of the thyroid, consider further assessment with nonemergent ultrasound. TECHNICAL DOCUMENTATION: Quality ID # 436: Final reports with documentation of one or more dose reduction techniques (e.g., Automated exposure control, adjustment of the mA and/or kV according to patient size, use of iterative reconstruction technique) copyright 2011 [employer]- All Rights Reserved Carotid Doppler Study 12/02/18 00:00 IMPRESSION: NO HEMODYNAMICALLY SIGNIFICANT STENOSIS. Head MRI 12/02/18 00:00 IMPRESSION: The acute left middle cerebral artery infarction. EVIDENCE OF ACUTE STROKE: Yes LEFT MCA Thyroid Ultrasound 12/02/18 00:00 IMPRESSION: The gland is normal in size, but there are some nodules as described. Consider biopsy of the larger left lobe nodule. Assessment & Plan - Diagnosis (1) CVA (cerebral vascular accident) Qualifiers: CVA mechanism: occlusion Precerebral and cerebral artery: unspecified precerebral artery Qualified Code(s): I63.20 - Cerebral infarction due to unspecified occlusion or stenosis of unspecified precerebral arteries Is this a current diagnosis for this admission?: Yes Plan: 12/02/2018-CT scan of the head shows age indeterminant lacunar infarct in the right basal ganglia. Patient had a problem with expressive dysphagia and receptive problems. No focal neurological deficits. CTA of the head CTA of the neck are negative for hemodynamically significant stenosis. MRI of the head is pending. Patient is allergic to aspirin and it was discontinued. Other pertinent stroke core measures were implemented. PT OT, , speech consult was re quested. materials planner was consulted. Aspiration, fall, seizure precautions were implemented. 12/03/2018 patient was admitted with headaches and confusion at the time of admission high blood pressures also. MRI of the brain was done which shows right middle cerebral artery infarct. Patient getting physical therapy. Acute stroke protocol was implemented. Patient is allergic to aspirin and aspirin was on hold. 12/04/2018-she was less anxious less agitated today. Able to participate in the conversation. She is expressing to go home with home health. harvest worker is working on the case to make arrangements for outpatient home health. In the meantime will continue the present management. Plan to discontinue neurochecks. Pressure today is 114/84 prior to that it was 92/58. I decreased amlodipine from 10 mg to 5 mg and stop hydrochlorothiazide. Continue with physical therapy. (2) HTN (hypertension) Qualifiers: Hypertension type: essential hypertension Qualified Code(s): I10 - Essential (primary) hypertension Is this a current diagnosis for this admission?: Yes Plan: 12/02/2018-patient blood pressure today is 141/69. Patient is on amlodipine 10 mg, valsartan 320 mg, hydrochlorothiazide 25 mg daily. Plan is to resume her home medications. 12/03/2018-blood pressure today is 144/71. Patient is presently on amlodipine 10 mg daily, valsartan 320 mg p.o. daily, hydrochlorothiazide 25 mg p.o. daily blood pressure is relatively controlled. Diet exercise compliant with medications are discussed with the patient and family members. 12/04/2018-blood pressure today is 92/58 and manual is 114/74. Presently on amlodipine 10 mg daily, valsartan 320 mg p.o. daily and hydrochlorothiazide 25 mg p.o. daily. Stop hydrochlorothiazide for now and decreased amlodipine to 5 mg daily. We are going to check the blood pressures again every shift. And to adjust medications as per the blood pressure measurements. (3) Diabetes mellitus type 2 in obese Is this a current diagnosis for this admission?: Yes Plan: 12/02/2018-has type 2 diabetes mellitus. Plan is to check her hemoglobin A1c. She was placed on insulin sliding scale. Dietary consult was requested. Patient is on glipizide and metformin at home , plan is to resume glipizide ,plan to hold metformin during the hospital stay. 12/03/2018 patient has history of diabetes mellitus hemoglobin A1c is 11.5. Patient is presently on glipizide 10 mg p.o. daily and insulin sliding scale. I started her on Lantus 10 units twice a day, her blood sugar this morning is 212. 12/04/2018-patient has history of type 2 diabetes mellitus, hemoglobin A1c is 11.5. Blood sugar today is 172. Patient is on glipizide 10 mg p.o. daily, insulin sliding scale, Lantus 10 units twice a day. Diet exercise weight loss lifestyle modifications discussed with the patient. Dietary consult was done. (4) Headache Qualifiers: Headache type: tension-type Headache chronicity pattern: acute headache Intractability: not intractable Qualified Code(s): G44.209 - Tension-type headache, unspecified, not intractable Is this a current diagnosis for this admission?: Yes Plan: 12/02/2018-patient initially came with severe headaches. Headaches are subsiding right now. She does not want any narcotics at this time. Denies any visual problems. 12/03/2018 at the time of admission patient complains of severe headaches in association with high blood pressures. No complaints of headaches anymore. Headache probably most likely secondary to the stroke. 12/04/2018 patient was admitted with severe headaches. Secondary to no acute stroke and uncontrolled hypertension at the time of admission. Headaches resolved. no Complaints today. (5) Obesity Qualifiers: Obesity classification: unspecified obesity classification Serious obesity comorbidity presence: unspecified whether serious comorbidity present Is this a current diagnosis for this admission?: Yes Plan: 12/02/2018 BMI is more than 35. Diet exercise weight loss lifestyle mod ifications are discussed with the patient. Dietary consult was requested. 12/03/2018-patient's BMI is more than 35. Diet exercise weight loss and lifestyle modifications are discussed with the patient. 12/04/2018-patient's BMI is more than 35, again diet exercise weight loss lifestyle modifications discussed with the patient and family. Dietary consult was done. (6) Hyperlipemia Is this a current diagnosis for this admission?: Yes Plan: 12/02/2018-lipid profile was done total cholesterol is 245 and LDL is 149. Patient was started on atorvastatin. 12/03/2018 total cholesterol is 245 LDL is 149 patient was on atorvastatin. Dietary advice was provided dietary consult was done. 12/04/2018 patient cholesterol levels are elevated she is presently on atorvastatin 40 mg p.o. daily plan to continue the present management. (7) Thyroid nodule Is this a current diagnosis for this admission?: Yes Plan: 12/03/2018 thyroid ultrasound was done per thyromegaly. Found to have thyroid nodule the radiologist recommendation is possible need for biopsy is going to arrange for the outpatient ENT follow-up. On palpation enlarged thyroid. 12/04/2018 ultrasound of the thyroid shows thyroid nodule recommendation is possible biopsy we going to arrange for outpatient ENT follow-up. TSH is 0.68. - Time Time Spent with patient: 15-24 minutes Medications reviewed and adjusted accordingly: Yes Anticipated discharge: Home
[2018-12-04] MEDS: GLIPIZIDE XL 5 MG TAB.ER.24 PO SCH (11:09)
[2018-12-04] MEDS: VALSARTAN 160 MG TABLET PO SCH (11:09)
[2018-12-04] MEDS: FAMOTIDINE 20 MG TABLET PO SCH ×2 (11:09→22:05)
[2018-12-04] MEDS: INSULIN GLARGINE,HUM.REC.ANLOG 1,000 UNIT/10 ML UNIT SUBCUT SCH ×2 (11:10→22:06)
[2018-12-04] MEDS: ATORVASTATIN CALCIUM 10 MG TABLET PO SCH (22:05)
[2018-12-05 05:28] LABS: ABSOLUTE BASOPHILS # (AUTO) 0.1 10^3/uL (0.0-0.2); ABSOLUTE EOSINOPHILS # (AUTO) 0.1 10^3/uL (0.0-0.6); ABSOLUTE LYMPHOCYTES (AUTO) 2.4 10^3/uL (0.5-4.7); ABSOLUTE MONOCYTES (AUTO) 0.6 10^3/uL (0.1-1.4); ABSOLUTE NEUT (AUTO) 3.4 10^3/uL (1.7-8.2); BASOPHILS % (AUTO) 0.8 % (0-2); EOSINOPHILS % (AUTO) 1.8 % (0-6); HEMATOCRIT 38.7 % (36.0-47.0); HEMOGLOBIN 12.8 g/dL (12.0-15.5); LYMPHOCYTES % (AUTO) 36.6 % (13-45); MEAN CORPUSCULAR HGB CONC 33.2 g/dL (32.0-36.0); MEAN CORPUSCULAR VOLUME 81 fl (80-97); MONOCYTES % (AUTO) 9.3 % (3-13); PLATELET COUNT 253 10^3/uL (150-450); RED BLOOD COUNT 4.76 10^6/uL (3.72-5.28); RED CELL DISTRIBUTION WIDTH 12.8 % (11.5-14.0); SEGMENTED NEUTROPHILS % (AUTO) 51.5 % (42-78); TOTAL CELLS COUNTED % (AUTO) 100 %; WHITE BLOOD COUNT 6.7 10^3/uL (4.0-10.5)
[2018-12-05 05:55] LABS: ALANINE AMINOTRANSFERASE 22 U/L (9-52); ALBUMIN 4.1 g/dL (3.5-5.0); ALKALINE PHOSPHATASE 75 U/L (38-126); ANION GAP 10 (5-19); ASPARTATE AMINO TRANSFERASE 23 U/L (14-36); BILIRUBIN,DIRECT 0.2 mg/dL (0.0-0.4); BILIRUBIN,TOTAL 0.5 mg/dL (0.2-1.3); BLOOD UREA NITROGEN 33 mg/dL (7-20); CALCIUM 9.5 mg/dL (8.4-10.2); CARBON DIOXIDE 27 mmol/L (22-30); CHLORIDE 99 mmol/L (98-107); GLUCOSE 132 mg/dL (75-110); POTASSIUM 4.7 mmol/L (3.6-5.0); SODIUM 135.8 mmol/L (137-145)
[2018-12-05] MEDS: HEPARIN SOD (PORCINE) 5,000 UNIT/ML 1 ML SYRINGE SUBCUT SCH (06:16)
--- NOTE | 2018-12-05 09:52 | PDOC DISCHARGE SUMMARY ---
General - Admit/Disc Date/PCP Admission Date/Primary Care Provider: 12/01/18 22:40 Discharge Date: 12/05/18 - Discharge Diagnosis (1) CVA (cerebral vascular accident) Is this a current diagnosis for this admission?: Yes Summary: 12/02/2018-CT scan of the head shows age indeterminant lacunar infarct in the right basal ganglia. Patient had a problem with expressive dysphagia and re ceptive problems. No focal neurological deficits. CTA of the head CTA of the neck are negative for hemodynamically significant stenosis. MRI of the head is pending. Patient is allergic to aspirin and it was discontinued. Other pertinent stroke core measures were implemented. PT OT, , speech consult was requested. environmental emergencies planner was consulted. Aspiration, fall, seizure precautions were implemented. 12/03/2018 patient was admitted with headaches and confusion at the time of admission high blood pressures also. MRI of the brain was done which shows right middle cerebral artery infarct. Patient getting physical therapy. Acute stroke protocol was implemented. Patient is allergic to aspirin and aspirin was on hold. 12/04/2018-she was less anxious less agitated today. Able to participate in the conversation. She is expressing to go home with home health. emergency worker is working on the case to make arrangements for outpatient home health. In the meantime will continue the present management. Plan to discontinue neurochecks. Pressure today is 114/84 prior to that it was 92/58. I decreased amlodipine from 10 mg to 5 mg and stop hydrochlorothiazide. Continue with physical therapy. 12/05/2018-patient is comfortably sitting on the edge of the bed eating her breakfast. No problem with swallowing. Physical therapy occupational therapy was done. No neurological deficits. The only problem is she has expressive dysarthria receptive to problems and memory problems. Still having problems in recalling her daughter's name 's name her date of arteritis and things like that. MRI of the brain showed acute middle cerebral artery infarction. Core measures are implemented. Patient is going home on atorvastatin and Plavix. She is going to receive outpatient speech therapy. (2) HTN (hypertension) Is this a current diagnosis for this admission?: Yes Summary: 12/02/2018-patient blood pressure today is 141/69. Patient is on amlodipine 10 mg, valsartan 320 mg, hydrochlorothiazide 25 mg daily. Plan is to resume her home medications. 12/03/2018-blood pressure today is 144/71. Patient is presently on amlodipine 10 mg daily, valsartan 320 mg p.o. daily, hydrochlorothiazide 25 mg p.o. daily blood pressure is relatively controlled. Diet exercise compliant with medications are discussed with the patient and family members. 12/04/2018-blood pressure today is 92/58 and manual is 114/74. Presently on amlodipine 10 mg daily, valsartan 320 mg p.o. daily and hydrochlorothiazide 25 mg p.o. daily. Stop hydrochlorothiazide for now and decreased amlodipine to 5 mg daily. We are going to check the blood pressures again every shift. And to adjust medications as per the blood pressure measurements. 12/05/2018-patient blood pressure today is 109/66. Asymptomatic. Patient initially came in with high blood pressure. We adjust her blood pressure medications. She is on amlodipine/valsartan and hydrochlorothiazide combo at home. Plan is to continue her home medications as an outpatient. (3) Diabetes mellitus type 2 in obese Is this a current diagnosis for this admission?: Yes Summary: 12/02/2018-has type 2 diabetes mellitus. Plan is to check her hemoglobin A1c. She was placed on insulin sliding scale. Dietary consult was requested. Patient is on glipizide and metformin at home , plan is to resume glipizide ,plan to hold metformin during the hospital stay. 12/03/2018 patient has history of diabetes mellitus hemoglobin A1c is 11.5. Patient is presently on glipizide 10 mg p.o. daily and insulin sliding scale. I started her on Lantus 10 units twice a day, her blood sugar this morning is 212. 12/04/2018-patient has history of type 2 diabetes mellitus, hemoglobin A1c is 11.5. Blood sugar today is 172. Patient is on glipizide 10 mg p.o. daily, insulin sliding scale, Lantus 10 units twice a day. Diet exercise weight loss lifestyle modifications discussed with the patient. Dietary consult was done. 12/05/2018-patient has history of type 2 diabetes mellitus and hemoglobin A1c is 11.5. Patient is on glipizide 10 mg daily at home and also metformin at home started on Lantus 10 units twice a day. Today's blood sugar is 132 well- controlled. Diet exercise complete the medications weight loss was advised. Patient was advised to continue glipizide metformin, I gave a prescription for Lantus 10 units twice daily. Advised to check the blood sugars at least twice a day. (4) Headache Is this a current diagnosis for this admission?: Yes Summary: 12/02/2018-patient initially came with severe headaches. Headaches are subsiding right now. She does not want any narcotics at this time. Denies any visual problems. 12/03/2018 at the time of admission patient complains of severe headaches in association with high blood pressures. No complaints of headaches anymore. Headache probably most likely secondary to the stroke. 12/04/2018 patient was admitted with severe headaches. Secondary to no acute stroke and uncontrolled hypertension at the time of admission. Headaches resolved. no Complaints today. 12/05/2018 patient was admitted with severe headaches probably secondary to new stroke and uncontrolled hypertension at the time of admission. Headaches are resolved now. (5) Obesity Is this a current diagnosis for this admission?: Yes Summary: 12/02/2018 BMI is more than 35. Diet exercise weight loss lifestyle modifications are discussed with the patient. Dietary consult was requested. 12/03/2018-patient's BMI is more than 35. Diet exercise weight loss and lifestyle modifications are discussed with the patient. 12/04/2018-patient's BMI is more than 35, again diet exercise weight loss lifestyle modifications discussed with the patient and family. Dietary consult was done. 12/05/2018-patient's BMI is more than 35, again diet exercise weight loss was advised. Hospital stay dietary consult was done. (6) Hyperlipemia Is this a current diagnosis for this admission?: Yes Summary: 12/02/2018-lipid profile was done total cholesterol is 245 and LDL is 149. Patient was started on atorvastatin. 12/03/2018 total cholesterol is 245 LDL is 149 patient was on atorvastatin. Dietary advice was provided dietary consult was done. 12/04/2018 patient cholesterol levels are elevated she is presently on atorvastatin 40 mg p.o. daily plan to continue the present management. 12/05/2018 patient has history of high cholesterol she is on atorvastatin 40 mg daily patient was advised to continue the medication at home. (7) Thyroid nodule Is this a current diagnosis for this admission?: Yes Summary: 12/03/2018 thyroid ultrasound was done per thyromegaly. Found to have thyroid nodule the radiologist recommendation is possible need for biopsy is going to arrange for the outpatient ENT follow-up. On palpation enlarged thyroid. 12/04/2018 ultrasound of the thyroid shows thyroid nodule recommendation is possible biopsy we going to arrange for outpatient ENT follow-up. TSH is 0.68. 12/05/2018-during the hospital stay incidental finding of thyroid nodule. TSH is 0.68. Patient may need to follow-up with ENT. And explained to the family members that patient is to follow-up with primary care physician in 3-5 days and also with the ENT in 1-2 weeks. Patient and family agreed. - Additional Information Resuscitation Status: Full Code Discharge Diet: Diabetic Discharge Activity: Activity As Tolerated Prescriptions: Atorvastatin Calcium [Lipitor 10 mg Tablet] 10 mg PO QHS #30 tablet Clopidogrel Bisulfate [Plavix 75 mg Tablet] 75 mg PO DAILY #30 tablet Insulin Glargine,Hum.rec.anlog [Lantus Insulin 100 Unit/1 ml 10 ml] 10 unit SUBCUT Q12 #3 vial Home Medications: Amlodipine/Valsartan/Hcthiazid [Jbgxn-Rshtp-Pwyi 10-320-25 mg] 1 each PO DAILY 12/02/18 Glipizide [Glipizide Xl] 10 mg PO DAILY 12/02/18 Metformin HCl [Glucophage 500 mg Tablet] 500 mg PO BIDACBS 12/02/18 Atorvastatin Calcium [Lipitor 10 mg Tablet] 10 mg PO QHS #30 tablet 12/05/18 Clopidogrel Bisulfate [Plavix 75 mg Tablet] 75 mg PO DAILY #30 tablet 12/05/18 Insulin Glargine,Hum.rec.anlog [Lantus Insulin 100 Unit/1 ml 10 ml] 10 unit SUBCUT Q12 #3 vial 12/05/18 History of Present Illness History of Present Illness: JOSIE BIRD is a 58 year old female who presented to the emergency room with a 5-day history of headache with mental confusion. She has a significant expressive aphasia and her helps to fill in the communication gaps. 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 She continued to have a moderately intense global headache until the morning of admission. She was also noted to have mental confusion over the same timeframe, by her who felt that she was having a hard time remembering simple every day things that would never be confusing to her under normal circumstances. 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 She had difficulty remembering the names of objects and could not name things such as her high blood pressure medicine and also had some confusion about the number of days that she had a headache and what day her symptoms changed. She denies prior similar episodes and has not identified any aggravating or ameliorating factors for her headache or confusion. In the emergency room she was found to have changes consistent with an acute cerebrovascular accident on her CT scan of the head. With these findings patient was admitted for acute stroke care. Physical Exam Vital Signs: Temp Pulse Resp BP Pulse Ox 98.2 F 52 L 18 109/66 92 12/05/18 03:40 12/05/18 03:40 12/05/18 03:40 12/05/18 03:40 12/05/18 03:40 Intake & Output 12/04/18 12/05/18 12/06/18 06:59 06:59 06:59 Intake Total 1368 724 Balance 1368 724 Weight 86.3 kg General appearance: PRESENT: no acute distress Eye exam: PRESENT: PERRLA Mouth exam: PRESENT: moist Neck exam: ABSENT: carotid bruit, JVD, lymphadenopathy, thyromegaly Respiratory exam: PRESENT: clear to auscultation amarjit. ABSENT: rales, rhonchi, wheezes Cardiovascular exam: PRESENT: RRR. ABSENT: diastolic murmur, rubs, systolic murmur GI/Abdominal exam: PRESENT: normal bowel sounds, soft. ABSENT: distended, guarding, mass, organolmegaly, rebound, tenderness Extremities exam: PRESENT: full ROM. ABSENT: calf tenderness, clubbing, pedal edema Neurological exam: PRESENT: alert, awake, oriented to person, oriented to place, oriented to time, oriented to situation, CN II-XII grossly intact. ABSENT: motor sensory deficit Psychiatric exam: PRESENT: appropriate affect, normal mood. ABSENT: homicidal ideation, suicidal ideation Results Laboratory Results: 12/05/18 04:38 12/05/18 04:38 01/26/19 01/26/19 04:38 04:38 WBC 6.7 RBC 4.76 Hgb 12.8 Hct 38.7 MCV 81 MCH 27.0 MCHC 33.2 RDW 12.8 Plt Count 253 Seg Neutrophils % 51.5 Lymphocytes % 36.6 Monocytes % 9.3 Eosinophils % 1.8 Basophils % 0.8 Absolute Neutrophils 3.4 Absolute Lymphocytes 2.4 Absolute Monocytes 0.6 Absolute Eosinophils 0.1 Absolute Basophils 0.1 Sodium 135.8 L Potassium 4.7 Chloride 99 Carbon Dioxide 27 Anion Gap 10 BUN 33 H Creatinine 1.54 H Est GFR ( Amer) 42 L Est GFR (Non-Af Amer) 34 L Glucose 132 H Calcium 9.5 Magnesium 2.2 Total Bilirubin 0.5 AST 23 ALT 22 Alkaline Phosphatase 75 Total Protein 7.0 Albumin 4.1 Impressions: Head CT 12/01/18 00:00 IMPRESSION: Age indeterminate lacunar infarct of the right basal ganglia. Vague areas of diminished attenuation in the left temporal and left parietal occipital region, consistent with areas of age-indeterminate infarct. No CT evidence for large or territorial acute infarct. No mass or midline shift. Minor small vessel ischemic change TECHNICAL DOCUMENTATION: Quality ID # 436: Final reports with documentation of one or more dose reduction techniques (e.g., Automated exposure control, adjustment of the mA and/or kV according to patient size, use of iterative reconstruction technique) copyright 2010 [employer]- All Rights Reserved Chest X-Ray 12/01/18 20:56 IMPRESSION: No acute cardiopulmonary process copyright 2010 [employer]- All Rights Reserved Head CTA 12/01/18 21:30 IMPRESSION: No CTA evidence for measurable stenosis in the head or neck. Heterogeneity of the thyroid, consider further assessment with nonemergent ultrasound. TECHNICAL DOCUMENTATION: Quality ID # 436: Final reports with documentation of one or more dose reduction techniques (e.g., Automated exposure control, adjustment of the mA and/or kV according to patient size, use of iterative reconstruction technique) copyright 2010 [employer]- All Rights Reserved Neck CTA 12/01/18 21:30 IMPRESSION: No CTA evidence for measurable stenosis in the head or neck. Heterogeneity of the thyroid, consider further assessment with nonemergent ultrasound. TECHNICAL DOCUMENTATION: Quality ID # 436: Final reports with documentation of one or more dose reduction techniques (e.g., Automated exposure control, adjustment of the mA and/or kV according to patient size, use of iterative reconstruction technique) copyright 2010 [employer]- All Rights Reserved Carotid Doppler Study 12/02/18 00:00 IMPRESSION: NO HEMODYNAMICALLY SIGNIFICANT STENOSIS. Head MRI 12/02/18 00:00 IMPRESSION: The acute left middle cerebral artery infarction. EVIDENCE OF ACUTE STROKE: Yes LEFT MCA Thyroid Ultrasound 12/02/18 00:00 IMPRESSION: The gland is normal in size, but there are some nodules as described. Consider biopsy of the larger left lobe nodule. Qualifiers - * PATIENT BEING DISCHARGED WITH ANY OF THE FOLLOWING DIAGNOSIS: Stroke VTE patient discharged on overlapping Therapy?: Yes Stroke Pt being discharged on Anti-thrombolytic therapy?: No Reason(s) for not prescribing Anti-thrombolytic therapy:: Not indicated Stroke Pt being discharged on Anti-coagulation therapy?: Yes Stroke Pt being discharged on Statins?: Yes
[2018-12-05] MEDS: GLIPIZIDE XL 5 MG TAB.ER.24 PO SCH (10:09)
[2018-12-05] MEDS: FAMOTIDINE 20 MG TABLET PO SCH (10:10)
[2018-12-05] MEDS: INSULIN GLARGINE,HUM.REC.ANLOG 1,000 UNIT/10 ML UNIT SUBCUT SCH (10:10)
[2018-12-05] MEDS: VALSARTAN 160 MG TABLET PO SCH (10:10)
[2018-12-05 10:37] VITALS: BP 107/59
== END 2018-12-05 11:50 | disposition home health service (06) | DRG 66 ==
LOC: ER 20:18 → EH 22:40 → 3N 12-02 01:04
PROVIDERS: ADMIT Emergency Medicine; ATTEND Emergency Medicine
DX: I63.81 Other cerebral infarction due to occlusion or stenosis of small artery (principal); R13.10 Dysphagia, unspecified; I10 Essential (primary) hypertension; E11.9 Type 2 diabetes mellitus without complications; E66.9 Obesity, unspecified; Z68.35 Body mass index [BMI] 35.0-35.9, adult; E78.00 Pure hypercholesterolemia, unspecified; E04.1 Nontoxic single thyroid nodule; I63.412 Cerebral infarction due to embolism of left middle cerebral artery; K21.9 Gastro-esophageal reflux disease without esophagitis; G44.209 Tension-type headache, unspecified, not intractable; Z79.84 Long term (current) use of oral hypoglycemic drugs; Z79.899 Other long term (current) drug therapy; Z88.6 Allergy status to analgesic agent; Z90.710 Acquired absence of both cervix and uterus; Z82.49 Family history of ischemic heart disease and other diseases of the circulatory system
CPT/HCPCS: 36415; 70450; 70496; 70498; 70551; 71045; 76536; 80048; 80053; 80061; 81001; 82140; 82803; 82962; 83036; 83605; 83735; 84439; 84443; 84481; 85025; 85027; 85610; 85730; 87040; 87086; 87804; 93005; 93010; 93306; 93880; 99291; J1644; J1815; J3490

== ENCOUNTER 2018-12-11 06:34 | Emergency (ER) | payer OTHER ==
--- NOTE | 2018-12-11 07:48 | ER Document Report ---
ED General - General Chief Complaint: Chest Tightness Stated Complaint: SHORTNESS OF BREATH Time Seen by Provider: 12/11/18 07:14 Notes: 58-year-old female who recently discharged with a right MCA stroke with a history of insulin-dependent diabetes mellitus and hypertension presents to the emergency department for respiratory difficulty that started this morning. Patient has an expressive aphasia after the stroke and pointing at her throat saying "I cannot see ". states he heard audible wheezing. Patient complains of shortness of breath, denies cough, denies chest pain, denies dizziness or lightheadedness. Patient denies nausea, vomiting, diarrhea. She denies swelling in her throat, recent fevers or illness. Since the stroke patient does have difficulty ambulating but does ambulate on her own. TRAVEL OUTSIDE OF THE [place] IN LAST 30 DAYS: No - Related Data Allergies/Adverse Reactions: aspirin [Aspirin] Allergy (Verified 06/21/15 15:59) Past Medical History - Social History Smoking Status: Never Smoker Family History: Hypertension Patient has suicidal ideation: No Patient has homicidal ideation: No - Past Medical History Cardiac Medical History: Reports: Hx Hypertension Pulmonary Medical History: Reports: Hx Asthma Denies: Hx COPD, Hx Respiratory Failure Neurological Medical History: Denies: Hx Seizures Endocrine Medical History: Reports: Hx Diabetes Mellitus Type 2. Denies: Hx Hyp erthyroidism, Hx Hypothyroidism Renal/ Medical History: Denies: Hx Peritoneal Dialysis GI Medical History: Reports: Hx Gastroesophageal Reflux Disease. Denies: Hx Cirrhosis, Hx Hepatitis Musculoskeletal Medical History: Denies Hx Arthritis, Denies Hx Gout Skin Medical History: Denies Hx Eczema, Denies Hx Psoriasis Infectious Medical History: Denies: Hx Hepatitis Past Surgical History: Reports: Hx Section - x 4, Hx Gynecologic Surgery - uterine fibroids, Hx Hysterectomy - Immunizations Hx Diphtheria, Pertussis, Tetanus Vaccination: Yes Review of Systems - Review of Systems Constitutional: See HPI EENT: See HPI Cardiovascular: See HPI Respiratory: See HPI Gastrointestinal: See HPI Genitourinary: No symptoms reported Female Genitourinary: No symptoms reported Musculoskeletal: No symptoms reported Skin: No symptoms reported Hematologic/Lymphatic: No symptoms reported Neurological/Psychological: See HPI Physical Exam - Vital signs Vitals: Resp Pulse Ox 17 97 12/11/18 06:43 12/11/18 06:43 - Notes Notes: PHYSICAL EXAMINATION: Reviewed vital signs and charting by RN GENERAL: Alert, interacts well. No acute distress. HEAD: Normocephalic, atraumatic. EYES: Pupils equal, round, and reactive to light. Extraocular movements intact. ENT: Oral mucosa moist, tongue midline, no swelling of the tongue or pharynx. NECK: Full range of motion. Supple. Trachea midline. LUNGS: Clear to auscultation bilaterally, no wheezes, rales, or rhonchi. No respiratory distress. HEART: Regular rate and rhythm. No murmur ABDOMEN: soft, non-tender. Non-distended. Bowel sounds present in all 4 quadrants. EXTREMITIES: Moves all 4 extremities spontaneously. No edema, No cyanosis. NEUROLOGICAL: Alert. Expressive aphasia PSYCH: Normal affect, normal mood. SKIN: Warm, dry, normal turgor. No rashes or lesions noted. Course - Re-evaluation Re-evalutation: 12/11/18 07:50 Pleasant 58-year-old female with recent discharge after a right MCA stroke presents for chest tightness that she complains is upper respiratory. On exam there was no audible stridor or stridor on auscultation with stethoscope. Lung sounds were clear to auscultation bilateral with no wheezes or adventitious sounds. Patient is not on lisinopril and there is no evidence of angioedema. Discussed with Dr. León and plan is to initiate a workup and to get a d-dimer to ensure she is not any hypercoagulable state. 12/11/18 11:49 D-dimer was 1.24. Recommendation was to get a CTA chest and also soft tissue neck CT to ensure there were no masses in the neck or to rule out a PE. It was very difficult to convince patient secondary to her expressive aphasia but after approximately 1 hour patient was convinced with her who is surrogate and daughters in the room results showed no evidence of a PE or no concerning ma sses in her neck. There is no concern for angioedema as patient is not on an SANDOVAL inhibitor and is taking amlodipine for her hypertension. No concern for a abdominal aortic aneurysm. Her elevated d-dimer could be related to her recent stroke or it could be related to chronic kidney disease as her creatinine was 1.76. patient is safe and stable to discharge home with strict return precautions.. 12/11/18 11:51 - Vital Signs Vital signs: Temp Pulse Resp BP Pulse Ox 98.6 F 64 17 130/70 H 100 12/11/18 07:02 12/11/18 06:44 12/11/18 10:31 12/11/18 10:31 12/11/18 10:31 - Laboratory Result Diagrams: 12/11/18 06:46 12/11/18 06:46 Laboratory results interpreted by me: 12/11/18 12/11/18 06:46 06:46 D-Dimer 1.24 H BUN 48 H Creatinine 1.76 H Est GFR ( Amer) 36 L Est GFR (Non-Af Amer) 29 L Glucose 118 H Discharge - Discharge Clinical Impression: Sensation of chest tightness Condition: Good Disposition: HOME, SELF-CARE Additional Instructions: You were seen in the emergency department this morning for tightness in your chest. All of the lab work and the imaging was very reassuring. There is no evidence of a pulmonary embolism or any concerning or life-threatening processes at this time. It is unclear why you are having that sensation of chest tightness, it could be related to anxiety, it could be related to underlying asthma. But, it is again reassuring because your lungs sounded clear and you did not have any wheezing. I am sending you home with an inhaler and a prescription for an inhaler she can have on hand. If you develop high fever, severe shortness of breath, any new weakness , you pass out or have any other concerning symptoms please immediately return to the emergency department.
--- NOTE | 2018-12-11 07:55 | EKG REPORT ---
SEVERITY:- ABNORMAL ECG - SINUS RHYTHM PROBABLE LEFT VENTRICULAR HYPERTROPHY : Confirmed by: Mateo Pisano MD 11-Dec-2018 07:54:03
[2018-12-11 08:07] LABS: ALANINE AMINOTRANSFERASE 19 U/L (9-52); ALBUMIN 4.2 g/dL (3.5-5.0); ALKALINE PHOSPHATASE 84 U/L (38-126); ANION GAP 12 (5-19); ASPARTATE AMINO TRANSFERASE 23 U/L (14-36); BILIRUBIN,DIRECT 0.3 mg/dL (0.0-0.4); BILIRUBIN,TOTAL 0.6 mg/dL (0.2-1.3); BLOOD UREA NITROGEN 48 mg/dL (7-20); CARBON DIOXIDE 29 mmol/L (22-30); CHLORIDE 98 mmol/L (98-107); GLUCOSE 118 mg/dL (75-110); POTASSIUM 4.8 mmol/L (3.6-5.0); SODIUM 138.8 mmol/L (137-145); TOTAL PROTEIN 7.5 g/dL (6.3-8.2)
[2018-12-11 08:19] LABS: ABSOLUTE EOSINOPHILS # (AUTO) 0.1 10^3/uL (0.0-0.6); ABSOLUTE LYMPHOCYTES (AUTO) 1.9 10^3/uL (0.5-4.7); ABSOLUTE MONOCYTES (AUTO) 0.5 10^3/uL (0.1-1.4); ABSOLUTE NEUT (AUTO) 4.8 10^3/uL (1.7-8.2); BASOPHILS % (AUTO) 0.5 % (0-2); EOSINOPHILS % (AUTO) 1.6 % (0-6); HEMATOCRIT 39.9 % (36.0-47.0); HEMOGLOBIN 13.3 g/dL (12.0-15.5); LYMPHOCYTES % (AUTO) 25.8 % (13-45); MEAN CORPUSCULAR HEMOGLOBIN 27.5 pg (27.0-33.4); MEAN CORPUSCULAR HGB CONC 33.4 g/dL (32.0-36.0); MEAN CORPUSCULAR VOLUME 82 fl (80-97); MONOCYTES % (AUTO) 7.3 % (3-13); PLATELET COUNT 344 10^3/uL (150-450); RED BLOOD COUNT 4.84 10^6/uL (3.72-5.28); RED CELL DISTRIBUTION WIDTH 13.2 % (11.5-14.0); SEGMENTED NEUTROPHILS % (AUTO) 64.8 % (42-78); TOTAL CELLS COUNTED % (AUTO) 100 %; WHITE BLOOD COUNT 7.4 10^3/uL (4.0-10.5)
--- NOTE | 2018-12-11 08:52 | RADIOLOGY REPORT (SQ) ---
EXAM DESCRIPTION: CHEST SINGLE VIEW COMPLETED DATE/TIME: 12/11/2018 8:43 am REASON FOR STUDY: Shortness of breath COMPARISON: 12/01/2018 EXAM PARAMETERS: NUMBER OF VIEWS: One view. TECHNIQUE: Single frontal radiographic view of the chest acquired. RADIATION DOSE: NA LIMITATIONS: None. FINDINGS: LUNGS AND PLEURA: No opacities, masses or pneumothorax. No pleural effusion. MEDIASTINUM AND HILAR STRUCTURES: No masses. Contour normal. HEART AND VASCULAR STRUCTURES: Heart normal in size. Normal vasculature. BONES: No acute findings. HARDWARE: None in the chest. OTHER: No other significant finding. IMPRESSION: NO ACUTE RADIOGRAPHIC FINDING IN THE CHEST. TECHNICAL DOCUMENTATION: JOB ID: [id number] [employer]- All Rights Reserved Reading location - IP/workstation name: [email or web address]
--- NOTE | 2018-12-11 11:39 | RADIOLOGY REPORT (SQ) ---
EXAM DESCRIPTION: CTA CHEST COMPLETED DATE/TIME: 12/11/2018 11:20 am REASON FOR STUDY: SOB, elevated D-dimer COMPARISON: None. TECHNIQUE: CT scan of the chest performed using helical scanning technique with dynamic intravenous contrast injection. Images reviewed with lung, soft tissue and bone windows. Reconstructed coronal and sagittal MPR images reviewed. Additional 3 dimensional post-processing performed to develop Maximal Intensity Projection images (VT P). All images stored on PACS. All CT scanners at this facility use dose modulation, iterative reconstruction, and/or weight based d osing when appropriate to reduce radiation dose to as low as reasonably achievable (ALARA). [facility]: Dose Right [facility]: CareDose [facility]: Dose Right [facility]: Teradose 4D [facility]: [employer] CONTRAST TYPE AND DOSE: contrast/concentration: Isovue 350.00 mg/ml; Total Contrast Delivered: 74.0 ml; Total Saline Delivered: 90.0 ml Contrast bolus optimized for the pulmonary arteries. Not diagnostic for the aorta. RENAL FUNCTION: BUN 40, creatinine 1.76 RADIATION DOSE: CT Rad equipment meets quality standard of care and radiation dose reduction techniq ues were employed. CTDIvol: 3.2 - 37.2 mGy. DLP: 1202 mGy-cm. . LIMITATIONS: None. FINDINGS: LUNGS AND PLEURA: No masses, infiltrates, or pneumothorax. No pleural effusions or pleura l calcifications. AORTA AND GREAT VESSELS: No aneurysm. Contrast bolus not optimized for the aorta. HEART: No pericardial effusion. No significant coronary artery calcifications. PULMONARY ARTERIES: No emboli visualized in the main pulmonary arteries or the segmental branches. HILAR AND MEDIASTINAL STRUCTURES: No identified masses or abnormal nodes. HARDWARE: None in the chest. UPPER ABDOMEN: No significant findings. Limited exam. THYROID AND OTHER SOFT TISSUES: No masses. No adenopathy. BONES: No acute or significant finding. 3D MIPS: Confirm above findings. OTHER: No other significant finding. IMPRESSION: NORMAL CTA OF THE CHEST. NO PULMONARY EMBOLI. COMMENT: Quality ID # 436: Final reports with documentation of one or more dose reduction techniques (e.g., Automated exposure control, adjustment of the mA and/or kV according to patient size, use of iterative reconstruction technique) TECHNICAL DOCUMENTATION: JOB ID: [id number] [employer]- All Rights Reserved Reading location - IP/workstation name: [email or web address]
--- NOTE | 2018-12-11 11:41 | RADIOLOGY REPORT (SQ) ---
EXAM DESCRIPTION: CT SOFT TISSUE NECK WITH COMPLETED DATE/TIME: 12/11/2018 11:25 am REASON FOR STUDY: SOB, elevated D-dimer COMPARISON: None. TECHNIQUE: Post IV contrasted scanning from skull base through lung apices with review of bone, soft tissue and lung windows. Reconstructed coronal and sagittal MPR images reviewed. All images stored on PACS. All CT scanners at this facility use dose modulation, iterative reconstruction, and/or weight based d osing when appropriate to reduce radiation dose to as low as reasonably achievable (ALARA). [facility]: Dose Right [facility]: CareDose [facility]: Dose Right [facility]: Teradose 4D [facility]: .[employer] CONTRAST TYPE AND DOSE: 74 mL Isovue 370- low osmolar. RENAL FUNCTION: BUN 48, creatinine 1.76 RADIATION DOSE: . LIMITATIONS: None. FINDINGS: SKULL BASE: Intact. MAJOR SALIVARY GLANDS: No solid or cystic masses. No inflammatory changes. LYMPHADENOPATHY: There are scattered small cervical lymph nodes most likely reactive. MUCOSAL MASSES OR ASYMMETRY: No mucosal masses or asymmetry. LARYNX/CORDS: No abnormal findings. VASCULAR STRUCTURES: The major vessels are patent. LUNG APICES: Clear. BONES: Intact. THYROID: Normal size. No masses. PARANASAL SINUSES: Clear. OTHER: No other significant finding. IMPRESSION: NO SIGNIFICANT FINDING IN THE SOFT TISSUES OF THE NECK. TECHNICAL DOCUMENTATION: JOB ID: [id number] Quality ID # [id number]: Final reports with documentation of one or more dose reduction techniques (e.g., Au tomated exposure control, adjustment of the mA and/or kV according to patient size, use of iterative reconstruction technique) 2010 [employer]- All Rights Reserved Reading location - IP/workstation name: [email or web address]
[2018-12-11] MEDS ORDERED: ALBUTEROL SULFATE HFA (90 MCG/PUFF) 8 GM MDI (1 MDI/ER DISP) IH ONE (11:55)
[2018-12-11 12:47] VITALS: BP 117/69
== END 2018-12-11 13:06 | disposition home or self-care (01) ==
LOC: ER 06:34
DX: R07.9 Chest pain, unspecified (principal); R06.02 Shortness of breath; E11.9 Type 2 diabetes mellitus without complications; Z79.4 Long term (current) use of insulin; I10 Essential (primary) hypertension
CPT/HCPCS: 93005; 99285; 36415; 85025; 80053; 84484; 85379; 71045; 70491; 71275; 93010; J3490

== ENCOUNTER → 2018-12-29 | Outpatient (CLI) | payer OTHER ==
[2018-12-29 11:49] LABS: ABSOLUTE EOSINOPHILS # (AUTO) 0.1 10^3/uL (0.0-0.6); ABSOLUTE LYMPHOCYTES (AUTO) 1.2 10^3/uL (0.5-4.7); ABSOLUTE MONOCYTES (AUTO) 0.4 10^3/uL (0.1-1.4); ABSOLUTE NEUT (AUTO) 2.3 10^3/uL (1.7-8.2); EOSINOPHILS % (AUTO) 3.6 % (0-6); HEMATOCRIT 35.8 % (36.0-47.0); HEMOGLOBIN 12.3 g/dL (12.0-15.5); LYMPHOCYTES % (AUTO) 29.8 % (13-45); MEAN CORPUSCULAR HEMOGLOBIN 27.6 pg (27.0-33.4); MEAN CORPUSCULAR HGB CONC 34.3 g/dL (32.0-36.0); MEAN CORPUSCULAR VOLUME 81 fl (80-97); MONOCYTES % (AUTO) 9.2 % (3-13); PLATELET COUNT 286 10^3/uL (150-450); RED BLOOD COUNT 4.44 10^6/uL (3.72-5.28); RED CELL DISTRIBUTION WIDTH 12.8 % (11.5-14.0); SEGMENTED NEUTROPHILS % (AUTO) 56.4 % (42-78); TOTAL CELLS COUNTED % (AUTO) 100 %; WHITE BLOOD COUNT 4.1 10^3/uL (4.0-10.5)
[2018-12-29 12:13] LABS: ALANINE AMINOTRANSFERASE 34 U/L (9-52); ALBUMIN 4.5 g/dL (3.5-5.0); ALKALINE PHOSPHATASE 72 U/L (38-126); ANION GAP 10 (5-19); ASPARTATE AMINO TRANSFERASE 31 U/L (14-36); BILIRUBIN,DIRECT 0.2 mg/dL (0.0-0.4); BILIRUBIN,TOTAL 0.5 mg/dL (0.2-1.3); BLOOD UREA NITROGEN 35 mg/dL (7-20); CALCIUM 10.2 mg/dL (8.4-10.2); CARBON DIOXIDE 29 mmol/L (22-30); CHLORIDE 103 mmol/L (98-107); CHOLESTEROL 175.67 mg/dL (0-200); POTASSIUM 4.9 mmol/L (3.6-5.0); SODIUM 142.3 mmol/L (137-145); TOTAL PROTEIN 7.6 g/dL (6.3-8.2); TRIGLYCERIDES 125 mg/dL (<150)
[2018-12-29 12:25] LABS: DIRECT LDL 94 mg/dL (<100)
[2018-12-29 12:32] LABS: GLUCOSE 61 mg/dL (75-110)
== END ==
LOC: OD 10:48
PROVIDERS: ATTEND Family Medicine
DX: I10 Essential (primary) hypertension (principal); E78.5 Hyperlipidemia, unspecified; E11.59 Type 2 diabetes mellitus with other circulatory complications
CPT/HCPCS: 36415; 80053; 80061; 83036; 85025